=== PATIENT | female | born 1935 | race Caucasian/White ===

== ENCOUNTER 2017-10-02 17:02 | Inpatient (IN) | payer OTHER, BC ==
--- NOTE | 2017-10-02 17:09 | PDOC ---
Rapid Medical Evaluation Time Seen by Provider: 10/02/17 17:04 Medical Evaluation: Allergies Allergy/AdvReac Type Severity Reaction Status Date / Time No Known Allergies Allergy Verified 10/13/15 20:23 10/02/17 17:04 Pt. presents for abdominal pain since this morning. States she vomited. Unable to eat d/t pain. Denies fevers, chills, diarrhea, and constipation. Hx of small bowel obstruction in the past. PSHx appendectomy and repair for the SBO Exam: Pt appears uncomfortable, walking. Abdomen diffusely tender. Mildly distended with guarding Orders: Labs, IV insert, Fluids, CTAP Pt to proceed to ED for further evaluation
[2017-10-02] MEDS ORDERED: SODIUM CHLORIDE 1,000 ML IV STA (17:12)
[2017-10-02] MEDS ORDERED: ACETAMINOPHEN 1000 MG/100 ML VIAL (NON FORMULARY) IVPB ONE (17:55)
[2017-10-02] MEDS ORDERED: ONDANSETRON *ODT* 4 MG TABLET SL ONE (17:55)
[2017-10-02 17:56] LABS: BASO % 0.2 % (0-2.0); HEMATOCRIT 46.1 % (32.4-45.2); HEMOGLOBIN 14.8 GM/dL (10.7-15.3); LYMPH % 6.4 % (8-40); MCH 28.6 pg (25.7-33.7); MCHC 32.1 g/dl (32.0-36.0); MEAN CELL VOLUME 88.9 fl (80-96); MEAN PLT VOLUME 10.6 fl (7.5-11.1); MONO % 1.9 % (3.8-10.2); NEUT % 91.5 % (42.8-82.8); PLATELET COUNT 291 K/MM3 (134-434); RBC 5.19 M/mm3 (3.60-5.2); RDW 15.1 % (11.6-15.6); WHITE BLOOD COUNT 23.2 K/mm3 (4.0-10.0)
[2017-10-02] MEDS ORDERED: ONDANSETRON 4 MG/2 ML VIAL IVPUSH ONE (18:02)
[2017-10-02] MEDS ORDERED: ACETAMINOPHEN INJECTION 100 ML IVPB ONE (18:09)
[2017-10-02 18:10] LABS: INR 1.08 (0.82-1.09); PROTHROMBIN TIME (PATIENT) 12.2 SEC (9.7-13.0)
[2017-10-02] MEDS ORDERED: ONDANSETRON 4 MG/2 ML VIAL ONE ×2 (18:10→22:37)
[2017-10-02 18:22] LABS: ALBUMIN 3.7 g/dl (3.4-5.0); ANION GAP 10 (8-16); BILIRUBIN,TOTAL 0.4 mg/dL (0.2-1.0); BLOOD UREA NITROGEN 18 mg/dL (7-18); CALCIUM 9.5 mg/dL (8.5-10.1); CHLORIDE 108 mmol/L (98-107); CO2 24 mmol/L (21-32); CREATININE 0.8 mg/dL (0.55-1.02); GLUCOSE,RANDOM 184 mg/dL (74-106); POTASSIUM 4.2 mmol/L (3.5-5.1); SGOT/AST 23 U/L (15-37); SGPT/ALT 26 U/L (12-78); SODIUM 142 mmol/L (136-145); TOT PROT 7.2 g/dl (6.4-8.2)
[2017-10-02 18:23] LABS: ALK PHOS 76 U/L (45-117)
--- NOTE | 2017-10-02 19:06 | PDOC ---
History of Present Illness - General History Source: Patient, Old Records Exam Limitations: No Limitations - History of Present Illness Initial Comments: 10/02/17 19:18 The patient is an 81 year old female, accompanied by , with a past medical history of small bowel obstruction and hyperlipidemia who presents to the emergency department with abdominal pain for 12 hours and vomiting for approximately 6 hours. The patient describes her pain as diffuse periumbilical and suprapubic pain without alleviating or exacerbating factors. She reports associated decreased appetite, dizziness, shakes, and chills. <Peter Norris - Last Filed: 10/02/17 19:18> <Cass Garces - Last Filed: 10/02/17 21:13> - General Chief Complaint: Pain, Acute Stated Complaint: STOMACH PAIN Time Seen by Provider: 10/02/17 17:04 Past History <Peter Norris - Last Filed: 10/02/17 19:18> - Past Medical History COPD: No DVT: No Hypercholesterolemia: Yes - Surgical History Abdominal Surgery: Yes (SBO) Appendectomy: Yes - Immunization History Immunization Up to Date: Yes - Suicide/Smoking/Psychosocial Hx Smoking History: Never smoked Have you smoked in the past 12 months: No Number of Cigarettes Smoked Daily: 20 If you are a former smoker, when did you quit?: 1963 Information on smoking cessation initiated: No Hx Alcohol Use: No Drug/Substance Use Hx: No Substance Use Type: None <Cass Garces - Last Filed: 10/02/17 21:13> - Past Medical History Allergies/Adverse Reactions: Allergies Allergy/AdvReac Type Severity Reaction Status Date / Time No Known Allergies Allergy Verified 10/02/17 17:05 Home Medications: Ambulatory Orders Atorvastatin Ca [Lipitor] 20 mg PO HS 10/13/15 Review of Systems - Review of Systems Able to Perform ROS?: Yes Comments:: 10/02/17 19:18 CONSTITUTIONAL: (+) Chills, Shakes decreased appetite Absent: fever, no fatigue EYES: Absent: visual changes ENT: Absent: ear pain, no sore throat CARDIOVASCULAR: Absent: chest pain, no palpitations RESPIRATORY: Absent: cough, no SOB GI: (+) Abdominal pain, vomiting Absent: no nausea, no constipation, no diarrhea GENITOURINARY: Absent: dysuria, no frequency, no hematuria MUSCULOSKELETAL: Absent: back pain, no arthralgia, no myalgia SKIN: Absent: rash NEURO: (+) Dizziness Absent: headache <[email or web address] farleyke - Last Filed: 10/02/17 19:18> *Physical Exam - Vital Signs Last Vital Signs Temp Pulse Resp BP Pulse Ox 98.0 F 94 H 16 147/83 96 10/02/17 17:05 10/02/17 17:05 10/02/17 17:05 10/02/17 17:05 10/02/17 17:05 - Physical Exam Comments: 10/02/17 19:18 GENERAL: Well-appearing, well-nourished. No apparent distress. HEENT: Normocephalic, atraumatic. PERRL, EOM intact. CARDIOVASCULAR: Normal S1, S2. Regular rate and rhythm. PULMONARY: Clear to auscultation bilaterally. ABDOMEN: (+) Soft, non-distended, tenderness beneath umbilicus and suprapubic area midline and laterally. No guarding or rebound. EXTREMITIES: Normal ROM in all four extremities. No gross deformities. SKIN: Warm, dry. No rash NEUROLOGICAL: (+) Hesitant historian. All cranial nerves intact <LuceromartinePeter - Last Filed: 10/02/17 19:18> - Vital Signs Last Vital Signs Temp Pulse Resp BP Pulse Ox 98.0 F 94 H 16 147/83 96 10/02/17 17:05 10/02/17 17:05 10/02/17 17:05 10/02/17 17:05 10/02/17 17:05 <Cass Garces - Last Filed: 10/02/17 21:13> ED Treatment Course - LABORATORY CBC & Chemistry Diagram: 10/02/17 17:42 10/02/17 17:42 - ADDITIONAL ORDERS Additional order review: Laboratory Results 10/02/17 10/02/17 17:42 17:42 PT with INR 12.20 INR 1.08 Sodium 142 Potassium 4.2 Chloride 108 H Carbon Dioxide 24 Anion Gap 10 BUN 18 Creatinine 0.8 Creat Clearance w eGFR > 60 Random Glucose 184 H Calcium 9.5 Total Bilirubin 0.4 AST 23 ALT 26 Alkaline Phosphatase 76 Total Protein 7.2 Albumin 3.7 10/02/17 17:42 RBC 5.19 MCV 88.9 MCHC 32.1 RDW 15.1 MPV 10.6 Neutrophils % 91.5 H D Lymphocytes % 6.4 L D Monocytes % 1.9 L D Eosinophils % 0.0 D Basophils % 0.2 - Medications Given in the ED: ED Medications Discontinued Medications Generic Name Dose Route Start Last Admin Trade Name Freq PRN Reason Stop Dose Admin Acetaminophen 1,000 mg 10/02/17 17:55 10/02/17 18:15 Ofirmev Injection - IVPB 10/02/17 17:56 1,000 mg ONCE ONE Administration Sodium Chloride 1,000 mls @ 1,000 mls/hr 10/02/17 17:12 10/02/17 17:48 Normal Saline - IV 10/02/17 18:11 1,000 mls/hr ASDIR STA Administration Ondansetron HCl 4 mg 10/02/17 17:55 10/02/17 18:28 Zofran Odt - SL 10/02/17 17:56 Not Given ONCE ONE Ondansetron HCl 4 mg 10/02/17 18:02 10/02/17 18:15 Zofran Injection IVPUSH 10/02/17 18:03 4 mg ONCE ONE Administration <Peter Norris - Last Filed: 10/02/17 19:18> - LABORATORY CBC & Chemistry Diagram: 10/02/17 17:42 10/02/17 17:42 - ADDITIONAL ORDERS Additional order review: Laboratory Results 10/02/17 17:42 Sodium 142 Potassium 4.2 Chloride 108 H Carbon Dioxide 24 Anion Gap 10 BUN 18 Creatinine 0.8 Creat Clearance w eGFR > 60 Random Glucose 184 H Calcium 9.5 Total Bilirubin 0.4 AST 23 ALT 26 Alkaline Phosphatase 76 Total Protein 7.2 Albumin 3.7 10/02/17 17:42 RBC 5.19 MCV 88.9 MCHC 32.1 RDW 15.1 MPV 10.6 Neutrophils % 91.5 H D Lymphocytes % 6.4 L D Monocytes % 1.9 L D Eosinophils % 0.0 D Basophils % 0.2 - Medications Given in the ED: ED Medications Discontinued Medications Generic Name Dose Route Start Last Admin Trade Name Freq PRN Reason Stop Dose Admin Acetaminophen 1,000 mg 10/02/17 17:55 10/02/17 18:15 Ofirmev Injection - IVPB 10/02/17 17:56 1,000 mg ONCE ONE Administration Sodium Chloride 1,000 mls @ 1,000 mls/hr 10/02/17 17:12 10/02/17 17:48 Normal Saline - IV 10/02/17 18:11 1,000 mls/hr ASDIR STA Administration Ondansetron HCl 4 mg 10/02/17 17:55 10/02/17 18:28 Zofran Odt - SL 10/02/17 17:56 Not Given ONCE ONE Ondansetron HCl 4 mg 10/02/17 18:02 10/02/17 18:15 Zofran Injection IVPUSH 10/02/17 18:03 4 mg ONCE ONE Administration <Cass Garces - Last Filed: 10/02/17 21:13> *DC/Admit/Observation/Transfer - Attestations Scribe Attestion: 10/02/17 19:19 Documentation prepared by Peter Norris, acting as medical case worker for Cass Garces MD. <Peter Norris - Last Filed: 10/02/17 19:18> - Discharge Dispostion Decision to Admit order: Yes <Cass Garces - Last Filed: 10/02/17 21:13> Diagnosis at time of Disposition: SBO (small bowel obstruction), Hyperglycemia Ascites Qualifiers: Ascites type: other type Qualified Code(s): R18.8 - Other ascites - Referrals Referrals: Benigno Yip MD [Primary Care Provider] - - Patient Instructions - Post Discharge Activity
[2017-10-02 20:36] LABS: PLATELET ESTIMATE ADEQUATE
[2017-10-02] MEDS ORDERED: PIPERACILLIN/TAZOB 3.375 GM 3.375 GM in DEXTROSE 5%-WATER - 50 ML IVPB ONE (21:05)
--- NOTE | 2017-10-02 21:40 | HP ---
Admitting History and Physical - Primary Care Physician PCP: Benigno Yip - Admission Chief Complaint: Abdominal Pain,Vomiting History of Present Illness: 81 y/o woman PMHx Mild Dementia, SBO, Ascites (2015). Who presents to the ED with her spouse abdominal pain x this am, vomiting x 1 episode here in the ED. Patient and her spouse describe the pain as constant "pain". She states her last BM was today- hard. Patient denies fever, chills, cough, CP, diarrhea, dysuria. History Source: Patient, Family Member Limitations to Obtaining History: Dementia (early) - Past Medical History LIFE SKILLS COORDINATOR: Yes: Dementia Cardiovascular: Yes: Hyperlipdemia Gastrointestinal: Yes: Other (SBO) Hepatobiliary: Yes: Other (Ascites) Endocrine: Yes: Osteopenia - Past Surgical History Past Surgical History: Yes: Appendectomy (Age 3), Tubal Ligation - Smoking History Smoking history: Former smoker Have you smoked in the past 12 months: No Aproximately how many cigarettes per day: 20 If you are a former smoker, when did you quit?: 1963 - Alcohol/Substance Use Hx Alcohol Use: No History of Substance Use: reports: None - Social History Usual Living Arrangement: Yes: With Spouse ADL: Independent History of Recent Travel: No Home Medications - Allergies Allergies/Adverse Reactions: Allergies Allergy/AdvReac Type Severity Reaction Status Date / Time No Known Allergies Allergy Verified 10/02/17 17:05 - Home Medications Home Medications: Ambulatory Orders Atorvastatin Ca [Lipitor] 20 mg PO HS 10/13/15 Family Disease History - Family Disease History Family Disease History: CA: Father (colon), Other: Mother (Dementia) Review of Systems - Review of Systems Constitutional: reports: Loss of Appetite Eyes: reports: No Symptoms HENT: reports: No Symptoms Neck: reports: No Symptoms Cardiovascular: reports: No Symptoms Respiratory: reports: No Symptoms Gastrointestinal: reports: Abdominal Pain, Bloating, Vomiting Genitourinary: reports: No Symptoms Breasts: reports: No Symptoms Reported Musculoskeletal: reports: No Symptoms Integumentary: reports: No Symptoms Neurological: reports: No Symptoms Endocrine: reports: No Symptoms Hematology/Lymphatic: reports: No Symptoms Psychiatric: reports: No Symptoms Physical Examination Vital Signs: Vital Signs Temperature 98.0 F 10/02/17 17:05 Pulse Rate 94 H 10/02/17 17:05 Respiratory Rate 16 10/02/17 17:05 Blood Pressure 147/83 10/02/17 17:05 O2 Sat by Pulse Oximetry (%) 96 10/02/17 17:05 Constitutional: Yes: Mild Distress Eyes: Yes: WNL, Conjunctiva Clear, EOM Intact, PERRL HENT: Yes: WNL, Atraumatic, Normocephalic Neck: Yes: WNL, Supple, Trachea Midline Cardiovascular: Yes: Regular Rate and Rhythm, Murmur, S1, S2 Respiratory: Yes: WNL, Regular, CTA Bilaterally Gastrointestinal: Yes: Ascites, Distention, Hypoactive Bowel Sounds, Tenderness Renal/: Yes: WNL Breast(s): Yes: WNL Musculoskeletal: Yes: WNL Extremities: Yes: WNL Edema: No Peripheral Pulses WNL: Yes Neurological: Yes: WNL, Alert, Oriented, Cran Nerves II-XII Intact ...Motor Strength: WNL Psychiatric: Yes: WNL, Alert, Oriented Labs: CBC, BMP 10/02/17 17:42 10/02/17 17:42 Laboratory Results - last 24 hr 10/02/17 10/02/17 10/02/17 17:42 17:42 17:42 WBC 23.2 H RBC 5.19 Hgb 14.8 Hct 46.1 H D MCV 88.9 MCH 28.6 MCHC 32.1 RDW 15.1 Plt Count 291 D MPV 10.6 Absolute Neuts (auto) 21.2 Total Counted 100 Neutrophils % 91.5 H D Neutrophils % (Manual) 87.0 H Lymphocytes % 6.4 L D Lymphocytes % (Manual) 11.0 Monocytes % 1.9 L D Eosinophils % 0.0 D Basophils % 0.2 Nucleated RBC % 0 Platelet Estimate Adequate PT with INR 12.20 INR 1.08 Sodium 142 Potassium 4.2 Chloride 108 H Carbon Dioxide 24 Anion Gap 10 BUN 18 Creatinine 0.8 Creat Clearance w eGFR > 60 Random Glucose 184 H Lactic Acid Calcium 9.5 Total Bilirubin 0.4 AST 23 ALT 26 Alkaline Phosphatase 76 Total Protein 7.2 Albumin 3.7 Urine Color Urine Appearance Urine pH Ur Specific [place] Urine Protein Urine Glucose (UA) Urine Ketones Urine Blood Urine Nitrite Urine Bilirubin Urine Urobilinogen Ur Leukocyte Esterase Blood Type Antibody Screen 10/02/17 10/02/17 10/02/17 17:42 21:06 22:00 WBC RBC Hgb Hct MCV MCH MCHC RDW Plt Count MPV Absolute Neuts (auto) Total Counted Neutrophils % Neutrophils % (Manual) Lymphocytes % Lymphocytes % (Manual) Monocytes % Eosinophils % Basophils % Nucleated RBC % Platelet Estimate PT with INR INR Sodium Potassium Chloride Carbon Dioxide Anion Gap BUN Creatinine Creat Clearance w eGFR Random Glucose Lactic Acid 4.3 H* Calcium Total Bilirubin AST ALT Alkaline Phosphatase Total Protein Albumin Urine Color Yellow Urine Appearance Clear Urine pH 6.0 Ur Specific [place] 1.019 Urine Protein Negative Urine Glucose (UA) Negative Urine Ketones Negative Urine Blood Negative Urine Nitrite Negative Urine Bilirubin Negative Urine Urobilinogen Negative Ur Leukocyte Esterase Negative Blood Type O POSITIVE Antibody Screen Negative Current Medications Generic Name Dose Route Start Last Admin Trade Name Freq PRN Reason Stop Dose Admin Heparin Sodium (Porcine) 5,000 unit 10/02/17 22:00 10/02/17 22:47 Heparin - SQ 5,000 unit BID MARIA Administration Dextrose/Sodium Chloride 1,000 mls @ 42 mls/hr 10/02/17 22:00 10/02/17 22:47 D5-1/2ns - IV 42 mls/hr ASDIR MARIA Administration Morphine Sulfate 4 mg 10/03/17 01:44 Morphine Injection - IVPUSH Q6H PRN PAIN LEVEL 7 - 10 Ondansetron HCl 4 mg 10/02/17 21:44 Zofran Injection IVPUSH Q6H PRN NAUSEA Imaging - Results Cat Scan: Report Reviewed, Image Reviewed EKG: Image Reviewed Problem List - Problems (1) SBO (small bowel obstruction) Code(s): K56.69 - OTHER INTESTINAL OBSTRUCTION * DO NOT USE * (2) SIRS (systemic inflammatory response syndrome) Code(s): R65.10 - SIRS OF NON-INFECTIOUS ORIGIN W/O ACUTE ORGAN DYSFUNCTION (3) Sepsis Code(s): A41.9 - SEPSIS, UNSPECIFIED ORGANISM (4) Lactic acidemia Code(s): E87.2 - ACIDOSIS (5) Ascites Code(s): R18.8 - OTHER ASCITES Qualifiers: Ascites type: other type Qualified Code(s): R18.8 - Other ascites (6) Hyperglycemia Code(s): R73.9 - HYPERGLYCEMIA, UNSPECIFIED (7) Hyperlipidemia Code(s): E78.5 - HYPERLIPIDEMIA, UNSPECIFIED Assessment/Plan 81 y/o woman Admitted for SIRS, Sepsis secondary to SBO. Plan: Will Admit to M/S CTAP- SBO, Ascites Blood Cultures-pending Urine Cultures- pending LA- 4.3, fluid bolus given Repeat LA SIRS Criteria Met- WBC 23.2, LA 4.3 Sepsis Criteria met Started on Zosyn, will continue Appreciate ID consult Appreciate Surgical consult NGT- patient adamantly refused it, risks and dangers discussed for not having it , benefits explained as well. Continue IVF NPO Monitor vitals CBC, BMP in am Morphine Sulfate prn Zofran prn FEN- D51/2NS@42ml/hr, Replete lytes prn, NPO DVT ppx- SCDs, Heparin SQ Code Status: Full Code Dispo: Requires Inpatient Care Visit type - Emergency Visit Emergency Visit: Yes ED Registration Date: 10/02/17 Care time: The patient presented to the Emergency Department on the above date and was hospitalized for further evaluation of their emergent condition. - New Patient This patient is new to me today: Yes Date on this admission: 10/02/17 - Critical Care Critical Care patient: No Hospitalist Screening - Colonoscopy Questionnaire Colonoscopy Questionnaire: Colonoscopy Questionnaire - Patient: 50 - 75 years old and never had a screening colonoscopy: No History of colon or rectal polyps, or CA: No History of IBD, Crohn's disease or UC: No History of abdominal radiation therapy as a child: No - Relative: 1 with colon or rectal CA, or polyps at age 60 or younger: Yes Colon or rectal CA diagnosed at age 45 or younger: No Multiple relatives with colon or rectal CA: No - Outcome: Screening Result: Positive Screen
[2017-10-02] MEDS ORDERED: PIPERACILLIN/TAZOB 3.375 GM 3.375 GM/50 ML BAG IVPB ONE (21:41)
[2017-10-02] MEDS ORDERED: ONDANSETRON 4 MG/2 ML VIAL IVPUSH PRN (21:44)
[2017-10-02] MEDS ORDERED: morphine CARPU-JECT 2 MG/1 ML DISP.SYRIN IVPUSH ONE (21:58)
[2017-10-02] MEDS ORDERED: HEPARIN NA (PORCINE) 5,000 UNITS/ML 1ML VIAL SQ SCH (22:00)
[2017-10-02] MEDS ORDERED: DEXTROSE 5%-0.45% SALINE 1,000 ML IV SCH (22:00)
[2017-10-02 22:23] LABS: URINE APPEARANCE CLEAR; URINE BILIRUBIN NEGATIVE (<2.0 mg/dL); URINE COLOR YELLOW; URINE GLUCOSE (UA) NEGATIVE (NEGATIVE); URINE KETONE NEGATIVE (NEGATIVE); URINE LEUK ESTERASE NEGATIVE (NEGATIVE); URINE NITRITE NEGATIVE (NEGATIVE); URINE PROTEIN NEGATIVE (NEGATIVE); URINE UROBILINOGEN NEGATIVE mg/dL (0.2-1.0)
[2017-10-02] MEDS ORDERED: HEPARIN NA (PORCINE) 5,000 UNITS/ML 1ML VIAL ONE (22:37)
[2017-10-02] MEDS ORDERED: MORPHINE SULFATE 2 MG/ML VIAL ONE (22:37)
[2017-10-03] MEDS ORDERED: morphine CARPU-JECT 2 MG/1 ML DISP.SYRIN IVPUSH STA (00:06)
[2017-10-03] MEDS ORDERED: MORPHINE SULFATE 2 MG/ML VIAL ONE (00:18)
[2017-10-03] MEDS ORDERED: morphine SULFATE 4 MG/ML VIAL IVPUSH PRN (01:44)
[2017-10-03 03:57] VITALS: BMI 24.9
[2017-10-03 07:15] LABS: BASO % 0.1 % (0-2.0); HEMATOCRIT 41.9 % (32.4-45.2); HEMOGLOBIN 13.6 GM/dL (10.7-15.3); LYMPH % 6.2 % (8-40); MCH 29.1 pg (25.7-33.7); MCHC 32.4 g/dl (32.0-36.0); MEAN CELL VOLUME 89.6 fl (80-96); MEAN PLT VOLUME 10.5 fl (7.5-11.1); MONO % 5.2 % (3.8-10.2); NEUT % 88.5 % (42.8-82.8); PLATELET COUNT 243 K/MM3 (134-434); RBC 4.68 M/mm3 (3.60-5.2); RDW 15.1 % (11.6-15.6)
[2017-10-03 07:29] LABS: CALCIUM 8.9 mg/dL (8.5-10.1); CHLORIDE 105 mmol/L (98-107); SODIUM 139 mmol/L (136-145)
[2017-10-03 07:35] LABS: ALBUMIN 2.8 g/dl (3.4-5.0); ALK PHOS 52 U/L (45-117); AMYLASE 29 U/L (25-115); ANION GAP 12 (8-16); BILIRUBIN,TOTAL 0.4 mg/dL (0.2-1.0); BLOOD UREA NITROGEN 24 mg/dL (7-18); CO2 22 mmol/L (21-32); CREATININE 1.1 mg/dL (0.55-1.02); GLUCOSE,RANDOM 182 mg/dL (74-106); LIPASE 46 U/L (73-393); SGOT/AST 17 U/L (15-37); SGPT/ALT 22 U/L (12-78)
[2017-10-03 07:44] LABS: WHITE BLOOD COUNT 30.2 K/mm3 (4.0-10.0)
--- NOTE | 2017-10-03 12:25 | PN ---
Progress Note (short form) - Note Progress Note: surgery pt seen and examined. full consult dictated. 81f well known to me, previous jeannine and exlap for sbo, presents with abd pain, n/v, rising leukocytosis, and ct showing high grade sbo with ascites. on exam abd is soft, with mild generalized tenderness ngt unable to be placed by ER and medical team Plan- high grade sbo with peritoneal finding, leukocytosis, and ascites. I am concerned for bowel compromise. recommend exploratory surgery. pt, , son and daughter and agree.
[2017-10-03] MEDS ORDERED: PROMETHAZINE HCL 25 MG/1 ML VIAL IVPUSH PRN ×2 (12:28→15:07)
[2017-10-03] MEDS ORDERED: ONDANSETRON 4 MG/2 ML VIAL IVPUSH PRN ×3 (12:28→15:07)
[2017-10-03] MEDS ORDERED: LACTATED RINGERS SOLUTION 1,000 ML IV SCH (12:30)
[2017-10-03] MEDS ORDERED: HYDROmorphone HCL CARPU-JECT 1 MG/1 ML DISP.SYRIN IVPB PRN ×2 (12:32→15:07)
[2017-10-03] MEDS ORDERED: oxyCODONE HCL 5 MG TABLET PO PRN (12:37)
[2017-10-03] MEDS ORDERED: MIDAZOLAM HCL 2 MG/2 ML SINGLE DOSE VIAL ONE (12:40)
[2017-10-03] MEDS ORDERED: ROCURONIUM BROMIDE 50 MG/5 ML VIAL ONE (12:40)
[2017-10-03] MEDS ORDERED: ETOMIDATE 20 MG/10 ML AMPUL IVPUSH ONE (12:41)
[2017-10-03] MEDS ORDERED: ERTAPENEM SODIUM 1 GM VIAL ONE (12:42)
[2017-10-03] MEDS ORDERED: ERTAPENEM SODIUM 1 GM VIAL IVPB ONE (12:59)
[2017-10-03] MEDS ORDERED: ONDANSETRON 4 MG/2 ML VIAL ONE (13:00)
[2017-10-03] MEDS ORDERED: DEXAMETHASONE SOD PHOSPHATE 4 MG/1 ML VIAL ONE (13:00)
--- NOTE | 2017-10-03 13:02 | EKG ---
Test Reason : Blood Pressure : / mmHG Vent. Rate : 086 BPM Atrial Rate : 086 BPM P-R Int : 124 ms QRS Dur : 082 ms QT Int : 360 ms P-R-T Axes : 043 034 047 degrees QTc Int : 430 ms NORMAL SINUS RHYTHM POSSIBLE LEFT ATRIAL ENLARGEMENT NONSPECIFIC ST ABNORMALITY ABNORMAL ECG WHEN COMPARED WITH ECG OF 13-OCT-2015 21:05, CRITERIA FOR SEPTAL INFARCT ARE NO LONGER PRESENT NONSPECIFIC T WAVE ABNORMALITY HAS REPLACED INVERTED T WAVES IN ANTERIOR LEADS Confirmed by HEMANT DIANA MD ([id number]) on 10/03/2017 1:02:24 PM Referred By: Confirmed By:HEMANT DIANA MD
--- NOTE | 2017-10-03 13:03 | PN ---
Progress Note, Physician Chief Complaint: Ms Springer says the pain is a little better today but still present. No cp or sob. - Current Medication List Current Medications: Active Medications Enoxaparin Sodium (Lovenox -) 40 mg SQ DAILY [facility] Fentanyl (Sublimaze Injection -) 50 mcg IVPUSH [id number] PRN PRN Reason: PAIN-PACU ORDER X 4 DOSES ONLY Hydromorphone HCl (Dilaudid Injection -) 1 mg IVPB Q4H PRN PRN Reason: PAIN LEVEL 4 - 6 Dextrose/Sodium Chloride (D5-1/2ns -) 1,000 mls @ 42 mls/hr IV ASDIR [facility] Last Admin: 10/02/17 22:47 Dose: 42 mls/hr Lactated Ringer's (Lactated Ringers Solution) 1,000 mls @ 125 mls/hr IV ASDIR [facility] Morphine Sulfate (Morphine Sulfate) 4 mg IVPUSH Q6H PRN PRN Reason: PAIN LEVEL 7 - 10 Ondansetron HCl (Zofran Injection) 4 mg IVPUSH Q6H PRN PRN Reason: NAUSEA Ondansetron HCl (Zofran Injection) 4 mg IVPUSH Q6H PRN PRN Reason: NAUSEA AND/OR VOMITING Oxycodone HCl (Roxicodone -) 7.5 mg PO Q4H PRN PRN Reason: PAIN LEVEL 1-5 Pantoprazole Sodium (Protonix Iv) 40 mg IVPUSH DAILY [facility] Promethazine HCl (Phenergan Injection -) 12.5 mg IVPUSH Q6H PRN PRN Reason: NAUSEA-FOR RESCUE AFTER 15 MIN - Objective Vital Signs: Vital Signs Temperature 35.9 C L 10/03/17 08:00 Pulse Rate 81 10/03/17 08:00 Respiratory Rate 18 10/03/17 08:00 Blood Pressure 116/67 10/03/17 08:00 O2 Sat by Pulse Oximetry (%) 97 10/03/17 02:54 Constitutional: Yes: Well Nourished, No Distress, Calm Cardiovascular: Yes: Regular Rate and Rhythm. No: Gallop, Murmur, Rub Respiratory: Yes: Regular, CTA Bilaterally. No: Rales, Rhonchi, Wheezes Gastrointestinal: Yes: Distention, Hypoactive Bowel Sounds, Tenderness. No: Normal Bowel Sounds, Soft Extremities: Yes: WNL Edema: No Labs: CBC, BMP 10/03/17 06:30 10/03/17 06:30 INR, PTT INR 1.08 (0.82-1.09) 10/02/17 17:42 Problem List - Problems (1) SBO (small bowel obstruction) Assessment/Plan: -patient presents with high grade small bowel obstruction -surgery aware, planning for exploratory lap and resection if needed Code(s): K56.69 - OTHER INTESTINAL OBSTRUCTION * DO NOT USE * (2) Sepsis Assessment/Plan: -secondary to SBO -concern for strangulation and compromise -will continue IV antibiotics -hydration -surgery as above Code(s): A41.9 - SEPSIS, UNSPECIFIED ORGANISM (3) Hyperlipidemia Assessment/Plan: -hold statin currently Code(s): E78.5 - HYPERLIPIDEMIA, UNSPECIFIED (4) Hyperglycemia Assessment/Plan: -suspect reactive from sepsis and SBO -no need for insulin currently -will monitor -hydration Code(s): R73.9 - HYPERGLYCEMIA, UNSPECIFIED (5) Lactic acidemia Assessment/Plan: -secondary to sepsis -hydration -IV antibiotics and surgical exploration Code(s): E87.2 - ACIDOSIS (6) Ascites Assessment/Plan: -suspect reactive -noted on CT scan Code(s): R18.8 - OTHER ASCITES Qualifiers: Ascites type: other type Qualified Code(s): R18.8 - Other ascites
[2017-10-03] MEDS ORDERED: DESFLURANE GAS 240 ML BOTTLE IH ONE (13:29)
--- NOTE | 2017-10-03 13:54 | CONS ---
DATE OF CONSULTATION: 10/03/2017 REASON FOR CONSULTATION: Small-bowel obstruction. This is an emergency room consultation requested by the emergency room physician. The patient was subsequently admitted to the floor and is being seen and examined there. BRIEF HISTORY: This is an 81-year-old female well known to me who in the past has had a small-bowel obstruction requiring a laparotomy and lysis of adhesions. She also had a distant appendectomy. She presented to [facility] complaining of abdominal pain, nausea and vomiting for less than 1 day duration. She was noted to have a markedly elevated white blood cell count and had a CAT scan of her abdomen and pelvis which was suggestive of a high-grade small-bowel obstruction with ascites. She was admitted to the hospital, placed on antibiotic, and a nasogastric tube was unable to be placed by the medical as well as the emergency room team. She states she has constant pain. Denies any blood in her vomit. Denies constipation. Denies diarrhea. Denies recent weight loss. PAST MEDICAL HISTORY: Significant for hyperlipidemia and adhesive small-bowel disease. PAST SURGICAL HISTORY: As stated in the HPI. HOME MEDICATIONS: Include Lipitor. ALLERGIES: She has no known drug allergies. FAMILY HISTORY: Noncontributory. REVIEW OF SYSTEMS: General: Denies fatigue or malaise. Cardiac: Denies chest pain or palpitations. Respiratory: No shortness of breath or wheeze. Gastrointestinal: As stated in HPI. Genitourinary: Denies dysuria. Musculoskeletal: Denies joint pain, joint swelling. Psychiatric: Denies anxiety, depression or hearing voices. PHYSICAL EXAMINATION: General: This is a well-developed, well-nourished, 81-year-old female in no distress. Vital signs: She is afebrile. Her vital signs are stable. HEENT: Her head is normocephalic. Her sclerae are anicteric. Neck: Supple. Chest: Clear. Abdomen: Soft. It is mildly distended. She has a midline surgical scar and a right paramedian incision. She has generalized mild tenderness with mild rebound. Extremities: Have trace edema. LABORATORY: On review, white blood cell count is elevated at 30,000 which is up from 23,000. She has a shift. Her chemistries show a BUN that is rising at 24, a creatinine that is rising at 1.1, her lactic acid is elevated at 3.8, and her lipase level is low at 46. IMAGING: As stated in the HPI. ASSESSMENT: This is an 81-year-old with abdominal pain, nausea, vomiting, peritoneal findings on physical examination, CAT scan findings of high-grade, small-bowel obstruction with ascites, and rising leukocytosis, with a lactic acidosis. At this point, she has a high-grade, mechanical small-bowel obstruction likely from adhesions, and I am concerned for bowel compromise. PLAN: At this point, recommend urgent exploratory surgery with lysis of adhesions and possible bowel resection. The patient understands this. She is agreeable to surgery. I have also discussed in detail with her as well as her son and daughter. The risks and benefits of surgery have been explained in detail; these are including, but not limited to, the possibility of injury to viscera, the possibility of blood loss requiring a blood transfusion, the possibility of future obstruction, possibility of future hernia, plus a multitude of medical risks, including, but not limited to, cardiac, neurologic, pulmonary, and vascular complications, even . The patient understands these risks and is agreeable to surgery. At this point, plans are being made for urgent exploration. She has been given Levaquin, an antibiotic which does not cover E coli. Therefore, we will give her a dose of Invanz antibiotic. She had received Zosyn one dose last night which has worn off. DO GAMALIEL [id number]
[2017-10-03] MEDS ORDERED: LIDOCAINE HCL/PF 2% SDV 5ML VIAL ONE (14:06)
--- NOTE | 2017-10-03 14:09 | CON.ID ---
Consult Consult Specialty:: infectious diseases Reason for Consultation:: necrosis of the bowel - History of Present Illness History of Present Illness: 81 y/o woman PMHx Mild Dementia, SBO, Ascites (Exp Lap 2015). Who presents to the ED with her spouse abdominal pain x this am, vomiting x 1 episode . Patient and her spouse describe the pain as constant "pain". She states her last BM was today- hard. Patient denies fever, chills, cough, CP, diarrhea, dysuria. 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 Cardio/Vascular: Yes: Hyperlipdemia Gastrointestinal: Yes: Other (SBO) Hepatobiliary: Yes: Other (Ascites) Endocrine: Yes: Osteopenia - Past Surgical History Past Surgical History: Yes: Appendectomy (Age 3), Tubal Ligation - Alcohol/Substance Use Hx Alcohol Use: Yes (daily wine) History of Substance Use: reports: None - Smoking History Smoking history: Former smoker Have you smoked in the past 12 months: No Aproximately how many cigarettes per day: 20 If you are a former smoker, when did you quit?: 1963 - Social History ADL: Independent History of Recent Travel: No Home Medications - Allergies Allergies/Adverse Reactions: Allergies Allergy/AdvReac Type Severity Reaction Status Date / Time No Known Allergies Allergy Verified 10/02/17 17:05 - Home Medications Home Medications: Ambulatory Orders Atorvastatin Ca [Lipitor] 20 mg PO HS 10/13/15 Family Disease History - Family Disease History Family Disease History: CA: Father (colon), Other: Mother (Dementia) Review of Systems Unable to obtain ROS, reason: unable toobtain Physical Exam Vital Signs: Vital Signs Temperature 96.7 F L 10/03/17 08:00 Pulse Rate 81 10/03/17 08:00 Respiratory Rate 18 10/03/17 08:00 Blood Pressure 116/67 10/03/17 08:00 O2 Sat by Pulse Oximetry (%) 97 10/03/17 02:54 Constitutional: Yes: Other Eyes: Yes: Conjunctiva Clear Neck: Yes: Supple, Trachea Midline Cardiovascular: Yes: Regular Rate and Rhythm Respiratory: Yes: Intubated, Mechanically Ventilated Gastrointestinal: Yes: Soft, Other (absent bowel sounds dressing present) Musculoskeletal: Yes: WNL Extremities: Yes: WNL Neurological: Yes: Other Labs: CBC, BMP 10/03/17 06:30 10/03/17 06:30 Imaging - Results Chest X-ray: Report Reviewed, Image Reviewed Cat Scan: Report Reviewed, Image Reviewed Assessment/Plan Problem List - Problems (1) SBO (small bowel obstruction) Code(s): K56.69 - OTHER INTESTINAL OBSTRUCTION * DO NOT USE * (2) Sepsis Code(s): A41.9 - SEPSIS, UNSPECIFIED ORGANISM (3) Hyperlipidemia Code(s): E78.5 - HYPERLIPIDEMIA, UNSPECIFIED (4) Hyperglycemia Code(s): R73.9 - HYPERGLYCEMIA, UNSPECIFIED (5) Lactic acidemia Code(s): E87.2 - ACIDOSIS (6) Ascites Code(s): R18.8 - OTHER ASCITES Qualifiers: Ascites type: other type Qualified Code(s): R18.8 - Other ascites Assessment/Plan will stop levaquin and flagyl will give a dose of diflucan will start patient on meropenam continue as per surgery and icu hydration if patient does well tomorrow then stop diflucan cc time 45 min
[2017-10-03] MEDS: PROPOFOL 1,000,000 MCG/100 ML VIAL IVPUSH SCH (14:50)
[2017-10-03] MEDS ORDERED: PROPOFOL 1000 MG/100 ML VIAL IVPB ONE (14:50)
--- NOTE | 2017-10-03 14:54 | OP ---
DATE OF OPERATION: 10/03/2017 PREOPERATIVE DIAGNOSIS: Small bowel obstruction with acute abdomen. POSTOPERATIVE DIAGNOSIS: Small bowel obstruction with acute abdomen. PROCEDURE: Exploratory laparotomy, drainage of bloody ascites, small bowel resection, lavage. SURGEON: Fernando Crystal DO CARD DOFFER: Abiodun Ayala MD ANESTHESIOLOGIST: Daniel Pringle MD (general) INTRAOPERATIVE FINDINGS: A 4 foot segment of ischemic/necrotic bowel. BLOOD LOSS: Minimal. COMPLICATIONS: None. SPECIMEN: Four feet of small bowel with necrosis. DISPOSITION: Recovery room in stable condition. ANESTHESIA: General. BRIEF HISTORY: This is an 81-year-old female presented to [facility] with small bowel obstruction, peritoneal findings, leukocytosis, lactic acidosis and CAT scan evidence of a high-grade small bowel obstruction with ascites. She presents now for urgent surgery. She was given Invanz prophylactically. PROCEDURE: The patient was placed in supine position, general anesthesia was initiated. The abdomen was prepped and draped in sterile fashion. A Sotelo catheter was inserted and the patient was on Invanz. Next, a vertical incision was made from approximately 3 inches below the umbilicus to approximately 4 inches below. The scalpel was used to go through skin. Electrocautery was used to go through the subcutaneous tissue, the fascia. The midline was opened using electrocautery. The peritoneum was entered sharply under direct visualization. Upon doing this, approximately 3 L of bloody ascites was drained. Necrotic bowel was immediately noted. It was trapped within an internal hernia created by an omental adhesion. This was freed. The small bowel was completely released and run. There was a 4 foot segment that had obvious vascular compromise with thrombosis seen in the mesentery. After allowing it to warm up and observed for at least 15 minutes, the majority of it appeared to be not viable. At this point, decision was made to resect the entire segment. A small bowel resection was done with a [id number] anastomosis using a GIA80 blue load stapler and a TA60 to close the enterotomy. The mesentery was divided using the LigaSure device. The 4 foot segment of necrotic small bowel was sent to Pathology marked as specimen. The mesenteric defect was closed with a running chromic suture. Some further omental adhesions to the abdominal wall were taken down. A vigorous lavage was done and all return was clear. Next, the liver was palpated. There were no masses noted. The colon was grossly palpated, as well as the pelvis and no masses identified. At this point after the lavage was done , the midline was closed with running PDS suture. The skin was left opened and packed. Overall the patient tolerated the procedure well. There were no complications. Blood loss was minimal and she was sent to the recovery room. Per Anesthesia, she was to be left on the ventilator for possible worsening sepsis, although she was currently stable. She also would leave her nasogastric tube in place, as well as the Sotelo catheter. DO GAMALIEL BEE/[id number] MTDD
[2017-10-03] MEDS: LACTATED RINGERS SOLUTION 1,000 ML IV SCH (15:00)
[2017-10-03] MEDS ORDERED: DEXTROSE 5%-0.45% SALINE 1,000 ML IV SCH (15:07)
--- NOTE | 2017-10-03 15:47 | OP ---
Operative Note - Note: Operative Date: 10/03/17 Pre-Operative Diagnosis: small bowel obstruction, acute abdomen Operation: exploratory laparotomy, small bowel resection, drainage of bloody ascites, lavage Findings: 4 foot of ischemic bowel, hemorrhagic, within internal hernia, bloody ascites Post-Operative Diagnosis: Same as Pre-op Surgeon: Fernando Crystal Fur Repairer: Abiodun Ayala Anesthesiologist/FUND DEVELOPMENT MANAGER: Daniel Pringle Anesthesia: General Specimens Removed: 4 foot compromised bowel Estimated Blood Loss (mls): 5 Operative Report Dictated: Yes
[2017-10-03 16:04] LABS: ARTERIAL BLD GAS O2 SATURATION 91.6 % (90-98.9); ARTERIAL BLOOD GAS BASE EXCESS -2.3 meq/l (-2-2); ARTERIAL BLOOD GAS PCO2 33.5 mmHg (35-45); ARTERIAL BLOOD GAS PO2 71.5 mmHg (68-100); ARTERIAL BLOOD GAS pH 7.42 (7.35-7.45)
--- NOTE | 2017-10-03 16:09 | CON.GI ---
Consult Consult Specialty:: Gastroenterology Referred by:: Dr. Foreman Reason for Consultation:: SBO on Abdominal CT - History of Present Illness Chief Complaint: Abdominal Pain History of Present Illness: Patient currently sedated and intubated on vent. Information obtained from medical records. Patient is an 81 female with a history of previous SBO s/p exploratory laparotomy and lysis of adhesions for small bowel obstruction (10/2015) who presented to the ED yesterday with her spouse for constant diffuse abdominal pain that started in the morning. Patient started having worsening abdominal pain associated with nausea, chills, rigors, and anorexia which prompted the ED visit. Patient in the ED had one episode of nonbloody nonbilious vomiting. On CT abdomen, patient was found to have peritoneal signs with leukocytosis, ascites, which was concerning for bowel compromise ans acute abdomen, as per surgeon. Patient was taken to OR for exploratory laparotomy. 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 Cardio/Vascular: Yes: Hyperlipdemia Gastrointestinal: Yes: Other (SBO) Hepatobiliary: Yes: Other (Ascites) Endocrine: Yes: Osteopenia - Past Surgical History Past Surgical History: Yes: Appendectomy (Age 3), Tubal Ligation Additional Surgical History: exploratory laparotomy - Alcohol/Substance Use Hx Alcohol Use: Yes (daily wine) History of Substance Use: reports: None - Smoking History Smoking history: Former smoker Have you smoked in the past 12 months: No Aproximately how many cigarettes per day: 20 If you are a former smoker, when did you quit?: 1964 - Social History ADL: Independent History of Recent Travel: No <Char Alex - Last Filed: 10/03/17 17:04> Home Medications <Char Alex - Last Filed: 10/03/17 17:04> <Jun Grissom - Last Filed: 10/04/17 11:26> - Allergies Allergies/Adverse Reactions: Allergies Allergy/AdvReac Type Severity Reaction Status Date / Time No Known Allergies Allergy Verified 10/02/17 17:05 - Home Medications Home Medications: Ambulatory Orders Atorvastatin Ca [Lipitor] 20 mg PO HS 10/13/15 Family Disease History - Family Disease History Family Disease History: CA: Father (colon), Other: Mother (Dementia) <Char Alex - Last Filed: 10/03/17 17:04> Review of Systems Unable to obtain ROS, reason: Patient intubated <Char Alex - Last Filed: 10/03/17 17:04> Physical Exam-GI Vital Signs: Vital Signs Temperature 96.7 F L 10/03/17 08:00 Pulse Rate 81 10/03/17 08:00 Respiratory Rate 18 10/03/17 09:00 Blood Pressure 116/67 10/03/17 08:00 O2 Sat by Pulse Oximetry (%) 95 10/03/17 09:00 Constitutional: Yes: Other (Intubated and sedated) Eyes: Yes: Conjunctiva Clear, PERRL. No: Sclera Icterus HENT: Yes: Other (ET tube and NG tube w/ bloody drainage) Cardiovascular: Yes: Regular Rate and Rhythm, S1, S2. No: Bradycardia, Tachycardia Respiratory: Yes: Other (Distant breath sounds anteriorly) Gastrointestinal Inspection: Yes: Other (Surgical dressing c/d/i) ...Auscultate: Yes: Hypoactive Bowel Sounds ...Palpate: Yes: Soft ...Rectal Exam: Yes: Deferred Edema: No Wound/Incision: Yes: Dressing Dry and Intact Labs: CBC, BMP 10/03/17 06:30 10/03/17 06:30 INR, PTT INR 1.08 (0.82-1.09) 10/02/17 17:42 <Char Alex - Last Filed: 10/03/17 17:04> Vital Signs: Vital Signs Temperature 100.3 F H 10/04/17 06:00 Pulse Rate 94 H 10/04/17 09:57 Respiratory Rate 20 10/04/17 09:44 Blood Pressure 110/47 10/04/17 08:00 O2 Sat by Pulse Oximetry (%) 95 10/04/17 09:57 Labs: CBC, BMP 10/04/17 05:30 10/04/17 05:30 INR, PTT INR 1.08 (0.82-1.09) 10/02/17 17:42 <Jun Grissom - Last Filed: 10/04/17 11:26> Imaging - Results Cat Scan: Report Reviewed, Image Reviewed <Char Alex - Last Filed: 10/03/17 17:04> Problem List - Problems (1) Ascites Code(s): R18.8 - OTHER ASCITES Qualifiers: Ascites type: other type Qualified Code(s): R18.8 - Other ascites (2) Lactic acidemia Code(s): E87.2 - ACIDOSIS (3) SBO (small bowel obstruction) Code(s): K56.69 - OTHER INTESTINAL OBSTRUCTION * DO NOT USE * (4) Sepsis Code(s): A41.9 - SEPSIS, UNSPECIFIED ORGANISM <Char Alex - Last Filed: 10/03/17 17:04> Assessment/Plan Assessment: Patient is an 81 year old female with a history of SBO (2016) who presented with abdominal pain and was found to have a small bowel obstruction on CT. Patient was taken to the OR for an exploratory laparotomy and was found to have 4 foot of ischemic bowel, hemorrhagic, within internal hernia, and bloody ascites a small bowel resection, drainage of bloody ascites with lavage was done. Patient developed SBO likely secondary to previous abdominal surgeries and confirmed history of abdominal adhesions PLAN: Patient is s/p exploratory laparotomy with small bowel resection Post-op care as per Surgery NPO Continue NG tube, as per surgery IV Abx, as per ID ICU care <Char Alex - Last Filed: 10/03/17 17:04> Attending Attestation - Resident Resident Name: Char Alex - HPI HPI: 10/04/17 11:25 as above - Physicial Exam PE: 10/04/17 11:25 as above - Medical Decision Making 10/04/17 11:25 The above A/P discussed with the resident. <Jun Grissom - Last Filed: 10/04/17 11:26>
[2017-10-03] MEDS ORDERED: MEROPENEM 1 GM VIAL (RESTRICTED TO ID) IVPB ONE ×2 (16:13→17:00)
[2017-10-03 16:16] LABS: ALLENS TEST POSITIVE
[2017-10-03] MEDS ORDERED: FLUCONAZOLE 400 MG/NS 200 ML IVPB ONE (16:45)
[2017-10-03] MEDS: MEROPENEM 1 GM in DEXTROSE 5%-WATER 100 ML IVPB SCH (18:13)
--- NOTE | 2017-10-03 20:40 | CONSULT ---
Consult Consult Specialty:: Pulm/CCM - History of Present Illness Chief Complaint: Post-op Colectomy History of Present Illness: 81yow with PMHx of SBO s/p exploratory laparotomy and lysis of adhesions (2015) who presented to the ED yesterday with c/o diffuse abdominal pain x 1 day also with nausea, chills, rigors, and anorexia. In the ED T 98, HR 94, BP 147/83, O2 sat 96%. Labs notable for WBC 30.2, lactate 3.8. CTAP notable for ascites and findings consistent with high grade small bowel obstruction. She had one episode of non-bloody non-bilious emesis in ED. She is now transferred to ICU s/p exploratory lap with small bowel resection. EBL 100cc, she received 2.5L fluid, UOP 100cc. In ICU rec'd intubated and sedated on propofol drip. On LR @125cc/h. No pressors. VS HR 100, BP 100/56, O2 sat 100%. Abd dressing dry and intact. NGT to LWS with minimal drainage. 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 Cardio/Vascular: Yes: Hyperlipdemia Gastrointestinal: Yes: Other (SBO) Hepatobiliary: Yes: Other (Ascites) Endocrine: Yes: Osteopenia - Past Surgical History Past Surgical History: Yes: Appendectomy (Age 3), Tubal Ligation Additional Surgical History: exploratory laparotomy - Alcohol/Substance Use Hx Alcohol Use: Yes (daily wine) History of Substance Use: reports: None - Smoking History Smoking history: Former smoker Have you smoked in the past 12 months: No Aproximately how many cigarettes per day: 20 If you are a former smoker, when did you quit?: 1964 - Social History ADL: Independent History of Recent Travel: No Home Medications - Allergies Allergies/Adverse Reactions: Allergies Allergy/AdvReac Type Severity Reaction Status Date / Time No Known Allergies Allergy Verified 10/02/17 17:05 - Home Medications Home Medications: Ambulatory Orders Atorvastatin Ca [Lipitor] 20 mg PO HS 10/13/15 Family Disease History - Family Disease History Family Disease History: CA: Father (colon), Other: Mother (Dementia) Review of Systems Unable to obtain ROS, reason: Unable- intubated Physical Exam Vital Signs: Vital Signs Temperature 99.1 F 10/03/17 17:45 Pulse Rate 98 H 10/03/17 18:35 Respiratory Rate 22 10/03/17 18:35 Blood Pressure 106/57 10/03/17 18:35 O2 Sat by Pulse Oximetry (%) 100 10/03/17 17:48 Constitutional: Yes: Well Nourished, No Distress Eyes: Yes: Conjunctiva Clear, PERRL HENT: Yes: Atraumatic, Normocephalic, Other (orally intubated) Neck: Yes: Supple, Trachea Midline Cardiovascular: Yes: WNL, S1, S2 Respiratory: Yes: CTA Bilaterally, Mechanically Ventilated Gastrointestinal: Yes: Other (surgical incision with dressing intact) Renal/: Yes: Sotelo Present Extremities: Yes: WNL Edema: No Peripheral Pulses WNL: Yes Integumentary: Yes: WNL Wound/Incision: Yes: Dressing Dry and Intact Neurological: Yes: Other (Sedated - RASS -4) Labs: CBC, BMP 10/03/17 06:30 10/03/17 06:30 CBC,CMP WBC 30.2 K/mm3 (4.0-10.0) H* 10/03/17 06:30 RBC 4.68 M/mm3 (3.60-5.2) 10/03/17 06:30 Hgb 13.6 GM/dL (10.7-15.3) 10/03/17 06:30 Hct 41.9 % (32.4-45.2) 10/03/17 06:30 MCV 89.6 fl (80-96) 10/03/17 06:30 MCH 29.1 pg (25.7-33.7) 10/03/17 06:30 MCHC 32.4 g/dl (32.0-36.0) 10/03/17 06:30 RDW 15.1 % (11.6-15.6) 10/03/17 06:30 Plt Count 243 K/MM3 (134-434) 10/03/17 06:30 MPV 10.5 fl (7.5-11.1) 10/03/17 06:30 Absolute Neuts (auto) 26.7 # 10/03/17 06:30 Total Counted 100 10/02/17 17:42 Neutrophils % 88.5 % (42.8-82.8) H 10/03/17 06:30 Neutrophils % (Manual) 87.0 % (42.8-82.8) H 10/02/17 17:42 Lymphocytes % 6.2 % (8-40) L 10/03/17 06:30 Lymphocytes % (Manual) 11.0 % (8-40) 10/02/17 17:42 Monocytes % 5.2 % (3.8-10.2) D 10/03/17 06:30 Eosinophils % 0.0 % (0-4.5) 10/03/17 06:30 Basophils % 0.1 % (0-2.0) 10/03/17 06:30 Nucleated RBC % 0 % (0-0) 10/03/17 06:30 Platelet Estimate Adequate 10/02/17 17:42 Sodium 139 mmol/L (136-145) 10/03/17 06:30 Potassium 4.0 mmol/L (3.5-5.1) 10/03/17 06:30 Chloride 105 mmol/L (98-107) 10/03/17 06:30 Carbon Dioxide 22 mmol/L (21-32) 10/03/17 06:30 Anion Gap 12 (8-16) 10/03/17 06:30 BUN 24 mg/dL (7-18) H 10/03/17 06:30 Creatinine 1.1 mg/dL (0.55-1.02) H 10/03/17 06:30 Creat Clearance w eGFR 47.55 (>60) 10/03/17 06:30 Random Glucose 182 mg/dL (74-106) H 10/03/17 06:30 Lactic Acid 3.8 mmol/L (0.0-2.0) H* 10/03/17 02:00 Calcium 8.9 mg/dL (8.5-10.1) 10/03/17 06:30 Total Bilirubin 0.4 mg/dL (0.2-1.0) 10/03/17 06:30 AST 17 U/L (15-37) 10/03/17 06:30 ALT 22 U/L (12-78) 10/03/17 06:30 Alkaline Phosphatase 52 U/L (45-117) D 10/03/17 06:30 Total Protein 6.0 g/dl (6.4-8.2) L 10/03/17 06:30 Albumin 2.8 g/dl (3.4-5.0) L 10/03/17 06:30 Total Amylase 29 U/L (25-115) 10/03/17 06:30 Lipase 46 U/L (73-393) L 10/03/17 06:30 Current Medications Enoxaparin Sodium (Lovenox -) 40 mg SQ DAILY [facility] Fentanyl (Sublimaze Injection -) 50 mcg IVPUSH [id number] PRN PRN Reason: PAIN-PACU ORDER X 4 DOSES ONLY Last Admin: 10/03/17 16:10 Dose: 50 mcg Propofol (Diprivan -) 1,000,000 mcg in 100 mls @ 1.977 mls/hr IVPUSH TITR MARIA; Protocol Last Titration: 10/03/17 17:15 Dose: 10 mcg/kg/min, 3.953 mls/hr Lactated Ringer's (Lactated Ringers Solution) 1,000 mls @ 125 mls/hr IV ASDIR MARIA Last Admin: 10/03/17 15:00 Dose: 125 mls/hr Meropenem 1 gm/ Dextrose 100 mls @ 200 mls/hr IVPB Q8H-IV MARIA Last Admin: 10/03/17 18:13 Dose: 200 mls/hr Morphine Sulfate (Morphine Sulfate) 4 mg IVPUSH Q4H PRN PRN Reason: PAIN LEVEL 4-6 Ondansetron HCl (Zofran Injection) 4 mg IVPUSH Q6H PRN PRN Reason: NAUSEA Oxycodone HCl (Roxicodone -) 7.5 mg PO Q4H PRN PRN Reason: PAIN LEVEL 1-5 Pantoprazole Sodium (Protonix Iv) 40 mg IVPUSH DAILY [facility] Promethazine HCl (Phenergan Injection -) 12.5 mg IVPUSH Q6H PRN PRN Reason: NAUSEA-FOR RESCUE AFTER 15 MIN Imaging - Results Chest X-ray: Report Reviewed Problem List - Problems (1) S/P colectomy Code(s): Z90.49 - ACQUIRED ABSENCE OF OTHER SPECIFIED PARTS OF DIGESTIVE TRACT (2) Ascites Code(s): R18.8 - OTHER ASCITES Qualifiers: Ascites type: other type Qualified Code(s): R18.8 - Other ascites (3) Lactic acidemia Code(s): E87.2 - ACIDOSIS (4) SBO (small bowel obstruction) Code(s): K56.69 - OTHER INTESTINAL OBSTRUCTION * DO NOT USE * (5) SIRS (systemic inflammatory response syndrome) Code(s): R65.10 - SIRS OF NON-INFECTIOUS ORIGIN W/O ACUTE ORGAN DYSFUNCTION Assessment/Plan 81yow with SBO now s/p exploratory lap and small bowel resection in ICU for post -op management Plan: -Mechanical vent support for O2 sat>92% -Low dose sedation for vent synchrony -Fentanyl pushes for pain management -SBT on am -Continue empiric antibiotics; tailor to cultures -Continue IVF; fluid bolus prn -Low threshold for vasopressor support for MAP>60 -Monitor for CBC for bleeding infection -NPO -NGT to LWS -Aspiration precaution -GI and DVT prophylaxis Tali Blanc, RONNELL CC time 35mins
[2017-10-04] MEDS ORDERED: PT OWN MED DRAWER 7, Y5N ONE ×3 (01:01→18:28)
[2017-10-04] MEDS: MEROPENEM 1 GM in DEXTROSE 5%-WATER 100 ML IVPB SCH ×4 (01:09→18:44)
[2017-10-04] MEDS: ACETAMINOPHEN 1000 MG/100 ML VIAL (NON FORMULARY) IVPB PRN (02:07)
[2017-10-04] MEDS: morphine SULFATE 4 MG/ML VIAL IVPUSH PRN (03:16)
[2017-10-04 06:12] LABS: HEMATOCRIT 29.9 % (32.4-45.2); MCH 29.5 pg (25.7-33.7); MCHC 33.5 g/dl (32.0-36.0); MEAN CELL VOLUME 88.2 fl (80-96); MEAN PLT VOLUME 10.1 fl (7.5-11.1); PLATELET COUNT 153 K/MM3 (134-434); WHITE BLOOD COUNT 18.2 K/mm3 (4.0-10.0)
[2017-10-04 06:37] LABS: ANION GAP 5 (8-16); BLOOD UREA NITROGEN 38 mg/dL (7-18); CALCIUM 8.5 mg/dL (8.5-10.1); CHLORIDE 105 mmol/L (98-107); CO2 27 mmol/L (21-32); CREATININE 1.4 mg/dL (0.55-1.02); GLUCOSE,RANDOM 113 mg/dL (74-106); MAGNESIUM 1.8 mg/dL (1.8-2.4); PHOSPHOROUS 3.8 mg/dL (2.5-4.9); POTASSIUM 4.7 mmol/L (3.5-5.1); SODIUM 137 mmol/L (136-145)
--- NOTE | 2017-10-04 08:23 | PN ---
Progress Note (short form) - Note Progress Note: Anesthesia Post op Pt seen and examined S:Intubated and sedated O: Vital Signs Temperature 100.3 F H 10/04/17 06:00 Pulse Rate 92 H 10/04/17 06:00 Respiratory Rate 18 10/04/17 07:04 Blood Pressure 119/57 10/04/17 06:00 O2 Sat by Pulse Oximetry (%) 100 10/03/17 22:53 CBC, BMP 10/04/17 05:30 10/04/17 05:30 A/P Current Active Problems Ascites (Acute) Hyperglycemia (Acute) Lactic acidemia (Acute) S/P colectomy (Acute) SBO (small bowel obstruction) (Acute) Sepsis (Acute) s/pexploratory laparotomy small bowel resction Doing well post op Consider extubation today when stable Continue current care Fernando Patel MD
--- NOTE | 2017-10-04 09:43 | PN ---
Progress Note (short form) - Note Progress Note: surgery pt seen and examined. awake and alert on vent. plans for extubation abd- soft, moderate distension, dressing c/d/i u/o 50 per hour over night minimal ngt output Selected Entries 10/04/17 06:00 Temperature 100.3 F H Laboratory Tests 10/04/17 10/04/17 10/04/17 05:30 05:30 05:30 WBC 18.2 H Hgb 10.0 L Plt Count 153 D BUN 38 H Creatinine 1.4 H Lactic Acid 1.4 A/P 1) Pod#1- cont npo, ngt, jeffrey, ivf.. extubate per icu 2) ischemic bowel- s/p resection, follow path. cont iv abx per id. wbc dropping. lactate normal 3) arf- adequate urine output. should resolve 4) prophylaxis- lovenox, protonix, oob when extubated, spirometer 5) post operative ileus- should last 3-5 days.
[2017-10-04] MEDS ORDERED: ENOXAPARIN NA (PORCINE) 40 MG/0.4 ML DISP.SYRIN SQ SCH (10:00)
[2017-10-04] MEDS: PANTOPRAZOLE SODIUM 40 MG VIAL IVPUSH SCH (10:16)
--- NOTE | 2017-10-04 10:45 | PN ---
Progress Note, Physician Chief Complaint: Ms Springer says the NGT is irritating her throat. Denies cp, sob, n/v. - Current Medication List Current Medications: Active Medications Acetaminophen (Ofirmev Injection -) 1,000 mg IVPB Q6H PRN PRN Reason: FEVER Last Admin: 10/04/17 02:07 Dose: 1,000 mg Enoxaparin Sodium (Lovenox -) 40 mg SQ DAILY [facility] Fentanyl (Sublimaze Injection -) 50 mcg IVPUSH [id number] PRN PRN Reason: PAIN-PACU ORDER X 4 DOSES ONLY Last Admin: 10/03/17 16:10 Dose: 50 mcg Propofol (Diprivan -) 1,000,000 mcg in 100 mls @ 1.977 mls/hr IVPUSH TITR MARIA; Protocol Last Titration: 10/04/17 06:09 Dose: 20.99 mcg/kg/min, 8.3 mls/hr Lactated Ringer's (Lactated Ringers Solution) 1,000 mls @ 125 mls/hr IV ASDIR MARIA Last Admin: 10/03/17 15:00 Dose: 125 mls/hr Meropenem 1 gm/ Dextrose 100 mls @ 200 mls/hr IVPB Q8H-IV [facility] Last Admin: 10/04/17 10:16 Dose: 200 mls/hr Morphine Sulfate (Morphine Sulfate) 4 mg IVPUSH Q4H PRN PRN Reason: PAIN LEVEL 4-6 Last Admin: 10/04/17 03:16 Dose: 4 mg Ondansetron HCl (Zofran Injection) 4 mg IVPUSH Q6H PRN PRN Reason: NAUSEA Oxycodone HCl (Roxicodone -) 7.5 mg PO Q4H PRN PRN Reason: PAIN LEVEL 1-5 Pantoprazole Sodium (Protonix Iv) 40 mg IVPUSH DAILY [facility] Last Admin: 10/04/17 10:16 Dose: 40 mg Promethazine HCl (Phenergan Injection -) 12.5 mg IVPUSH Q6H PRN PRN Reason: NAUSEA-FOR RESCUE AFTER 15 MIN - Objective Vital Signs: Vital Signs Temperature 37.9 C H 10/04/17 06:00 Pulse Rate 94 H 10/04/17 09:57 Respiratory Rate 20 10/04/17 09:44 Blood Pressure 119/57 10/04/17 06:00 O2 Sat by Pulse Oximetry (%) 95 10/04/17 09:57 Constitutional: Yes: Well Nourished, No Distress, Calm Cardiovascular: Yes: Regular Rate and Rhythm. No: Gallop, Murmur, Rub Respiratory: Yes: Regular, CTA Bilaterally. No: Rales, Rhonchi, Wheezes Gastrointestinal: Yes: Soft, Hypoactive Bowel Sounds. No: Normal Bowel Sounds, Distention, Tenderness Extremities: Yes: WNL Edema: No Labs: CBC, BMP 10/04/17 05:30 10/04/17 05:30 INR, PTT INR 1.08 (0.82-1.09) 10/02/17 17:42 Problem List - Problems (1) SBO (small bowel obstruction) Code(s): K56.69 - OTHER INTESTINAL OBSTRUCTION * DO NOT USE * (2) Sepsis Code(s): A41.9 - SEPSIS, UNSPECIFIED ORGANISM (3) Hyperlipidemia Code(s): E78.5 - HYPERLIPIDEMIA, UNSPECIFIED (4) Hyperglycemia Code(s): R73.9 - HYPERGLYCEMIA, UNSPECIFIED (5) Lactic acidemia Code(s): E87.2 - ACIDOSIS (6) Ascites Code(s): R18.8 - OTHER ASCITES Qualifiers: Ascites type: other type Qualified Code(s): R18.8 - Other ascites Assessment/Plan (1) SBO (small bowel obstruction) Assessment/Plan: -s/p ex lap with resection -surgery note reviewed -continue NPO and NGT -surgery following Code(s): K56.69 - OTHER INTESTINAL OBSTRUCTION * DO NOT USE * (2) Sepsis Assessment/Plan: -improved -continue IVF and levaquin and flagyl -lactic acidosis resolved -leukocytosis improving Code(s): A41.9 - SEPSIS, UNSPECIFIED ORGANISM (3) Hyperlipidemia Assessment/Plan: -hold statin currently Code(s): E78.5 - HYPERLIPIDEMIA, UNSPECIFIED (4) Hyperglycemia Assessment/Plan: -resolved Code(s): R73.9 - HYPERGLYCEMIA, UNSPECIFIED (5) Lactic acidemia Assessment/Plan: -resolved Code(s): E87.2 - ACIDOSIS (6) Ascites Assessment/Plan: -suspect reactive -noted on CT scan Code(s): R18.8 - OTHER ASCITES Qualifiers: Ascites type: other type Qualified Code(s): R18.8 - Other ascites
--- NOTE | 2017-10-04 11:25 | PN ---
Teaching Attending Note Name of Resident: Tanja Alex ATTENDING PHYSICIAN STATEMENT I saw and evaluated the patient. I reviewed the resident's note and discussed the case with the resident. I agree with the resident's findings and plan as documented. SUBJECTIVE: Pt seen and examined in the ICU. s/p ex-lap/resection of 4 ft SB. Tolerated CPAP /PS trials and subsequently extubated during rounds. OBJECTIVE: Vital Signs Period Temp Pulse Resp BP Sys/Alvarado Pulse Ox Last 24 Hr 98.6 F-100.3 F 78-106 10-23 85-138/41-76 29-100 Intake & Output 10/01/17 10/02/17 10/03/17 10/04/17 23:59 23:59 23:59 23:59 Intake Total 3300 1799.6 Output Total 775 500 Balance 2525 1299.6 Weight 66.224 kg 66.134 kg 67.676 kg Gen: extubated Heart: RRR Lung: decreased breath sounds at the bases Abd: soft, dressings intact Ext: no edema CBC, BMP 10/04/17 05:30 10/04/17 05:30 Active Medications Acetaminophen (Ofirmev Injection -) 1,000 mg IVPB Q6H PRN PRN Reason: FEVER Last Admin: 10/04/17 02:07 Dose: 1,000 mg Fentanyl (Sublimaze Injection -) 50 mcg IVPUSH [id number] PRN PRN Reason: PAIN-PACU ORDER X 4 DOSES ONLY Last Admin: 10/03/17 16:10 Dose: 50 mcg Heparin Sodium (Porcine) (Heparin -) 5,000 unit SQ TID MARIA Propofol (Diprivan -) 1,000,000 mcg in 100 mls @ 1.977 mls/hr IVPUSH TITR MARIA; Protocol Last Titration: 10/04/17 06:09 Dose: 20.99 mcg/kg/min, 8.3 mls/hr Lactated Ringer's (Lactated Ringers Solution) 1,000 mls @ 125 mls/hr IV ASDIR MARIA Last Admin: 10/03/17 15:00 Dose: 125 mls/hr Meropenem 1 gm/ Dextrose 100 mls @ 200 mls/hr IVPB Q8H-IV MARIA Last Admin: 10/04/17 10:16 Dose: 200 mls/hr Morphine Sulfate (Morphine Sulfate) 4 mg IVPUSH Q4H PRN PRN Reason: PAIN LEVEL 4-6 Last Admin: 10/04/17 03:16 Dose: 4 mg Ondansetron HCl (Zofran Injection) 4 mg IVPUSH Q6H PRN PRN Reason: NAUSEA Oxycodone HCl (Roxicodone -) 7.5 mg PO Q4H PRN PRN Reason: PAIN LEVEL 1-5 Pantoprazole Sodium (Protonix Iv) 40 mg IVPUSH DAILY MARIA Last Admin: 10/04/17 10:16 Dose: 40 mg Promethazine HCl (Phenergan Injection -) 12.5 mg IVPUSH Q6H PRN PRN Reason: NAUSEA-FOR RESCUE AFTER 15 MIN ASSESSMENT AND PLAN: Small Bowel Obstruction s/p ex-lap/resection of 4ft SB Sepsis Acute Kidney Injury Lactic Acidosis Hyperlipidemia - pt extubated - continue antibiotics - IVF - monitor urine output, creatinine - pain control - incentive spirometry - O2 to keep SpO2 >90% - NPO - await return of bowel function - DVT prophylaxis critical care time spent in reviewing chart, evaluating patient and formulating plan 35 min
--- NOTE | 2017-10-04 11:55 | PN ---
Physical Exam: SUBJECTIVE: Patient seen and examined. Tolerated CPAP trials and was successfully extubated. Offers no complaints. Denies abdominal pain, sob, chest pain. OBJECTIVE: Vital Signs Period Temp Pulse Resp BP Sys/Alvarado Pulse Ox Last 24 Hr 98.6 F-100.3 F 78-106 10-23 85-138/41-76 29-100 GENERAL: awake, alert in NAD EYES: PERRL, sclera anicteric, conjunctiva clear. ENT: moist mucous membranes. NECK: supple. LUNGS: decreased breath sounds, no wheezing HEART: RRR, no murmurs appreciated ABDOMEN: Surgical dressing in place. distended, hypoactive bowel sounds EXTREMITIES: 2+ pulses, warm, no edema. NEUROLOGICAL: Cranial nerves II through XII grossly intact. Laboratory Results - last 24 hr 10/03/17 10/04/17 10/04/17 15:45 05:30 05:30 WBC 18.2 H RBC 3.40 L Hgb 10.0 L Hct 29.9 L D MCV 88.2 MCH 29.5 MCHC 33.5 RDW 15.0 Plt Count 153 D MPV 10.1 Puncture Site Right radial ABG pH 7.42 ABG pCO2 at Pt Temp 33.5 L ABG pO2 at Pt Temp 71.5 ABG HCO3 21.2 L ABG O2 Sat (Measured) 91.6 ABG O2 Content 14.5 L ABG Base Excess -2.3 L Donovan Test Positive Oxygen Flow Rate 50% Vent Rate 10 Pressure Support Vent 400 Sodium 137 Potassium 4.7 Chloride 105 Carbon Dioxide 27 Anion Gap 5 L BUN 38 H Creatinine 1.4 H Creat Clearance w eGFR 36.00 Random Glucose 113 H Lactic Acid Calcium 8.5 Phosphorus 3.8 Magnesium 1.8 10/04/17 05:30 WBC RBC Hgb Hct MCV MCH MCHC RDW Plt Count MPV Puncture Site ABG pH ABG pCO2 at Pt Temp ABG pO2 at Pt Temp ABG HCO3 ABG O2 Sat (Measured) ABG O2 Content ABG Base Excess Donovan Test Oxygen Flow Rate Vent Rate Pressure Support Vent Sodium Potassium Chloride Carbon Dioxide Anion Gap BUN Creatinine Creat Clearance w eGFR Random Glucose Lactic Acid 1.4 Calcium Phosphorus Magnesium Active Medications Generic Name Dose Route Start Last Admin Trade Name Freq PRN Reason Stop Dose Admin Acetaminophen 1,000 mg 10/03/17 22:56 10/04/17 02:07 Ofirmev Injection - IVPB 1,000 mg Q6H PRN Administration FEVER Fentanyl 50 mcg 10/03/17 15:07 10/03/17 16:10 Sublimaze Injection - IVPUSH 50 mcg [id number] PRN Administration PAIN-PACU ORDER X 4 DOSES ONLY Heparin Sodium (Porcine) 5,000 unit 10/04/17 14:00 Heparin - SQ TID MARIA Propofol 1,000,000 mcg in 100 mls @ 1.977 mls/hr 10/03/17 14:45 10/04/17 06: 09 Diprivan - IVPUSH 20.99 mcg/kg/min TITR MARIA 8.3 mls/hr Titration Protocol 5 MCG/KG/MIN Lactated Ringer's 1,000 mls @ 125 mls/hr 10/03/17 15:07 10/03/17 15:00 Lactated Ringers Solution IV 125 mls/hr ASDIR MARIA Administration Meropenem 1 gm/ Dextrose 100 mls @ 200 mls/hr 10/03/17 16:45 10/04/17 10:16 IVPB 200 mls/hr Q8H-IV MARIA Administration Morphine Sulfate 4 mg 10/03/17 16:08 10/04/17 03:16 Morphine Sulfate IVPUSH 4 mg Q4H PRN Administration PAIN LEVEL 4-6 Ondansetron HCl 4 mg 10/03/17 15:07 Zofran Injection IVPUSH Q6H PRN NAUSEA Oxycodone HCl 7.5 mg 10/03/17 12:37 Roxicodone - PO Q4H PRN PAIN LEVEL 1-5 Pantoprazole Sodium 40 mg 10/04/17 10:00 10/04/17 10:16 Protonix Iv IVPUSH 40 mg DAILY MARIA Administration Promethazine HCl 12.5 mg 10/03/17 15:07 Phenergan Injection - IVPUSH Q6H PRN NAUSEA-FOR RESCUE AFTER 15 MIN ASSESSMENT/PLAN: 1yow with SBO now s/p exploratory lap POD #1 and small bowel resection in ICU for post-op management NEURO -a/o x 3 -off sedation -at baseline PULM -extubated -now on ventimask -Switch to NC when ready. -maintain O2 sat >90% -incentive spirometry CV -BP stable -cardiac monitoring GI #SBO #S/p ex lap POS #1 -IV fluids -cont. IV abx: meropenem -NPO -NGT -pain control with Morphine, Oxycodone -surgery, GI on board, follow reccs -await return of bowel function #MEMO -cr 1.4 -IV fluids -avoid nephrotoxins -FU AM bmp ID -sepsis likely secondary from SBO -WBC trending down, lactic WNL -afebrile -ID on board -IV abx with Meropenem FEN -IV fluids LR@ 125 -monitor lytes -NPO Ppx Hep SQ Visit type - Emergency Visit Emergency Visit: Yes ED Registration Date: 10/02/17 Care time: The patient presented to the Emergency Department on the above date and was hospitalized for further evaluation of their emergent condition. - New Patient This patient is new to me today: Yes Date on this admission: 10/04/17 - Critical Care Critical Care patient: Yes Total Critical Care Time (in minutes): 40 Critical Care Statement: The care of this patient involved high complexity decision making to prevent further life threatening deterioration of the patient 's condition and/or to evaluate & treat vital organ system(s) failure or risk of failure.
[2017-10-04] MEDS: HEPARIN NA (PORCINE) 5,000 UNITS/ML 1ML VIAL SQ SCH ×2 (15:30→22:30)
[2017-10-04] MEDS: PROPOFOL 1,000,000 MCG/100 ML VIAL IVPUSH SCH (16:56)
[2017-10-04] MEDS: LACTATED RINGERS SOLUTION 1,000 ML IV SCH (16:56)
--- NOTE | 2017-10-04 17:02 | PN ---
Progress Note, Physician History of Present Illness: doing much better extubated ng tube in place says she feels better family in room had a high fever this morning - Current Medication List Current Medications: Active Medications Acetaminophen (Ofirmev Injection -) 1,000 mg IVPB Q6H PRN PRN Reason: FEVER Last Admin: 10/04/17 02:07 Dose: 1,000 mg Heparin Sodium (Porcine) (Heparin -) 5,000 unit SQ TID MARIA Last Admin: 10/04/17 15:30 Dose: 5,000 unit Propofol (Diprivan -) 1,000,000 mcg in 100 mls @ 1.977 mls/hr IVPUSH TITR MARIA; Protocol Last Admin: 10/04/17 16:56 Dose: Not Given Lactated Ringer's (Lactated Ringers Solution) 1,000 mls @ 125 mls/hr IV ASDIR MARIA Last Admin: 10/04/17 16:56 Dose: 125 mls/hr Meropenem 1 gm/ Dextrose 100 mls @ 200 mls/hr IVPB Q8H-IV MARIA Last Admin: 10/04/17 10:16 Dose: 200 mls/hr Morphine Sulfate (Morphine Sulfate) 4 mg IVPUSH Q4H PRN PRN Reason: PAIN LEVEL 4-6 Last Admin: 10/04/17 03:16 Dose: 4 mg Ondansetron HCl (Zofran Injection) 4 mg IVPUSH Q6H PRN PRN Reason: NAUSEA Oxycodone HCl (Roxicodone -) 7.5 mg PO Q4H PRN PRN Reason: PAIN LEVEL 1-5 Pantoprazole Sodium (Protonix Iv) 40 mg IVPUSH DAILY [facility] Last Admin: 10/04/17 10:16 Dose: 40 mg Promethazine HCl (Phenergan Injection -) 12.5 mg IVPUSH Q6H PRN PRN Reason: NAUSEA-FOR RESCUE AFTER 15 MIN - Objective Vital Signs: Vital Signs Temperature 99.5 F 10/04/17 10:00 Pulse Rate 100 H 10/04/17 12:00 Respiratory Rate 20 10/04/17 12:00 Blood Pressure 107/49 10/04/17 12:00 O2 Sat by Pulse Oximetry (%) 95 10/04/17 09:57 Constitutional: Yes: No Distress, Calm HENT: Yes: Atraumatic Neck: Yes: Supple, Trachea Midline Cardiovascular: Yes: Regular Rate and Rhythm Respiratory: Yes: Regular, CTA Bilaterally, Other (absent bowel sounds) Musculoskeletal: Yes: WNL Extremities: Yes: WNL Neurological: Yes: Alert, Oriented Psychiatric: Yes: Alert, Oriented Labs: CBC, BMP 10/04/17 05:30 10/04/17 05:30 INR, PTT INR 1.08 (0.82-1.09) 10/02/17 17:42 Assessment/Plan Problem List - Problems (1) SBO (small bowel obstruction) Code(s): K56.69 - OTHER INTESTINAL OBSTRUCTION * DO NOT USE * (2) Sepsis Code(s): A41.9 - SEPSIS, UNSPECIFIED ORGANISM (3) Hyperlipidemia Code(s): E78.5 - HYPERLIPIDEMIA, UNSPECIFIED (4) Hyperglycemia Code(s): R73.9 - HYPERGLYCEMIA, UNSPECIFIED (5) Lactic acidemia Code(s): E87.2 - ACIDOSIS (6) Ascites Code(s): R18.8 - OTHER ASCITES Qualifiers: Ascites type: other type Qualified Code(s): R18.8 - Other ascites Assessment/Plan continue abx monitor for fever if spikes again cx to be done also monitor closely hydration rest as per icu/surgery cc time 40 min
[2017-10-05] MEDS ORDERED: PT OWN MED DRAWER 7, Y5N ONE ×3 (00:39→19:30)
[2017-10-05] MEDS: ACETAMINOPHEN 1000 MG/100 ML VIAL (NON FORMULARY) IVPB PRN ×2 (00:45→22:00)
[2017-10-05] MEDS: MEROPENEM 1 GM in DEXTROSE 5%-WATER 100 ML IVPB SCH ×3 (01:15→19:32)
[2017-10-05] MEDS: LACTATED RINGERS SOLUTION 1,000 ML IV SCH (02:00)
[2017-10-05] MEDS: HEPARIN NA (PORCINE) 5,000 UNITS/ML 1ML VIAL SQ SCH ×3 (05:36→22:01)
[2017-10-05 06:07] LABS: BASO % 0.1 % (0-2.0); HEMATOCRIT 23.4 % (32.4-45.2); HEMOGLOBIN 7.7 GM/dL (10.7-15.3); LYMPH % 17.8 % (8-40); MCH 29.7 pg (25.7-33.7); MCHC 33.1 g/dl (32.0-36.0); MEAN CELL VOLUME 89.6 fl (80-96); MEAN PLT VOLUME 10.2 fl (7.5-11.1); NEUT % 77.1 % (42.8-82.8); PLATELET COUNT 113 K/MM3 (134-434); RBC 2.61 M/mm3 (3.60-5.2); RDW 14.7 % (11.6-15.6); WHITE BLOOD COUNT 11.6 K/mm3 (4.0-10.0)
[2017-10-05 06:33] LABS: ALBUMIN 1.7 g/dl (3.4-5.0); ANION GAP 5 (8-16); BLOOD UREA NITROGEN 21 mg/dL (7-18); CALCIUM 8.5 mg/dL (8.5-10.1); CHLORIDE 107 mmol/L (98-107); CO2 30 mmol/L (21-32); CREATININE 0.8 mg/dL (0.55-1.02); GLUCOSE,RANDOM 90 mg/dL (74-106); PHOSPHOROUS 2.1 mg/dL (2.5-4.9); SGOT/AST 28 U/L (15-37); SGPT/ALT 20 U/L (12-78); SODIUM 142 mmol/L (136-145)
[2017-10-05 06:34] LABS: ALK PHOS 35 U/L (45-117); BILIRUBIN,TOTAL 0.3 mg/dL (0.2-1.0); TOT PROT 4.2 g/dl (6.4-8.2)
[2017-10-05] MEDS ORDERED: SODIUM CHLORIDE 500 ML IV STA (07:47)
--- NOTE | 2017-10-05 09:22 | PN ---
Progress Note (short form) - Note Progress Note: Post op day#2.P86.BP 111/47 and Spo2 94% on O2 3L NC.Patient stable, extubated and doing well.No any anesthesia related problem.Patient Dc from the anesthesia care.
--- NOTE | 2017-10-05 11:44 | PN ---
Teaching Attending Note Name of Resident: Tanja Alex ATTENDING PHYSICIAN STATEMENT I saw and evaluated the patient. I reviewed the resident's note and discussed the case with the resident. I agree with the resident's findings and plan as documented. SUBJECTIVE: Pt seen and examined in the ICU. Pain controlled with current regimen. Thinks she has some flatus. No shortness of breath or chest pain. OBJECTIVE: Vital Signs Period Temp Pulse Resp BP Sys/Alvarado Pulse Ox Last 24 Hr 98.4 F-100 F 79-100 13-20 98-119/46-54 93-95 Intake & Output 10/02/17 10/03/17 10/04/17 10/05/17 23:59 23:59 23:59 23:59 Intake Total 3300 4139.6 850 Output Total 775 1700 700 Balance 2525 2439.6 150 Weight 66.224 kg 66.134 kg 65.771 kg 67.387 kg Gen: NAD at rest Heart: RRR Lung: decreased breath sounds at the bases Abd: dressings dry Ext: no edema CBC, BMP 10/05/17 05:30 10/05/17 05:30 Active Medications Acetaminophen (Ofirmev Injection -) 1,000 mg IVPB Q6H PRN PRN Reason: FEVER Last Admin: 10/05/17 00:45 Dose: 1,000 mg Heparin Sodium (Porcine) (Heparin -) 5,000 unit SQ TID MARIA Last Admin: 10/05/17 05:36 Dose: 5,000 unit Lactated Ringer's (Lactated Ringers Solution) 1,000 mls @ 125 mls/hr IV ASDIR MARIA Last Admin: 10/05/17 02:00 Dose: 125 mls/hr Meropenem 1 gm/ Dextrose 100 mls @ 200 mls/hr IVPB Q8H-IV MARIA Last Admin: 10/05/17 01:15 Dose: 200 mls/hr Potassium Chloride/Dextrose/Sod Cl (D5-1/2ns+20 Meq Kcl -) 20 meq in 1,000 mls @ 100 mls/hr IV ASDIR MARIA Morphine Sulfate (Morphine Sulfate) 4 mg IVPUSH Q4H PRN PRN Reason: PAIN LEVEL 4-6 Last Admin: 10/04/17 03:16 Dose: 4 mg Ondansetron HCl (Zofran Injection) 4 mg IVPUSH Q6H PRN PRN Reason: NAUSEA Oxycodone HCl (Roxicodone -) 7.5 mg PO Q4H PRN PRN Reason: PAIN LEVEL 1-5 Pantoprazole Sodium (Protonix Iv) 40 mg IVPUSH DAILY MARIA Last Admin: 10/04/17 10:16 Dose: 40 mg Promethazine HCl (Phenergan Injection -) 12.5 mg IVPUSH Q6H PRN PRN Reason: NAUSEA-FOR RESCUE AFTER 15 MIN ASSESSMENT AND PLAN: Small Bowel Obstruction s/p ex-lap/resection of 4ft SB Sepsis Acute Kidney Injury Lactic Acidosis Hyperlipidemia - continue antibiotics - IVF - monitor urine output, creatinine - pain control - incentive spirometry - O2 to keep SpO2 >90% - NPO - await return of bowel function - DVT prophylaxis - can monitor on floor if ok with surgery
[2017-10-05] MEDS ORDERED: D5-1/2NS+20 MEQ KCL - 20 MEQ/1,000 ML INFUS.BAG IV SCH (11:45)
[2017-10-05] MEDS ORDERED: BENZOCAINE/MENTH/CETYLPYRD CL 1 EACH LOZENGE MM PRN (12:01)
[2017-10-05] MEDS: PANTOPRAZOLE SODIUM 40 MG VIAL IVPUSH SCH (12:11)
--- NOTE | 2017-10-05 13:22 | PN ---
Progress Note, Physician Chief Complaint: Ms Springer says she is feeling better. No cp, sob, n/v. - Current Medication List Current Medications: Active Medications Acetaminophen (Ofirmev Injection -) 1,000 mg IVPB Q6H PRN PRN Reason: FEVER Last Admin: 10/05/17 00:45 Dose: 1,000 mg Benzocaine/Menthol (Cepacol Lozenge -) 1 each MM PRN PRN PRN Reason: SORE THROAT Heparin Sodium (Porcine) (Heparin -) 5,000 unit SQ TID MARIA Last Admin: 10/05/17 05:36 Dose: 5,000 unit Lactated Ringer's (Lactated Ringers Solution) 1,000 mls @ 125 mls/hr IV ASDIR [facility] Last Admin: 10/05/17 02:00 Dose: 125 mls/hr Meropenem 1 gm/ Dextrose 100 mls @ 200 mls/hr IVPB Q8H-IV [facility] Last Admin: 10/05/17 12:09 Dose: 200 mls/hr Potassium Chloride/Dextrose/Sod Cl (D5-1/2ns+20 Meq Kcl -) 20 meq in 1,000 mls @ 100 mls/hr IV ASDIR [facility] Last Admin: 10/05/17 12:13 Dose: 100 mls/hr Morphine Sulfate (Morphine Sulfate) 4 mg IVPUSH Q4H PRN PRN Reason: PAIN LEVEL 4-6 Last Admin: 10/04/17 03:16 Dose: 4 mg Ondansetron HCl (Zofran Injection) 4 mg IVPUSH Q6H PRN PRN Reason: NAUSEA Oxycodone HCl (Roxicodone -) 7.5 mg PO Q4H PRN PRN Reason: PAIN LEVEL 1-5 Pantoprazole Sodium (Protonix Iv) 40 mg IVPUSH DAILY [facility] Last Admin: 10/05/17 12:11 Dose: 40 mg Promethazine HCl (Phenergan Injection -) 12.5 mg IVPUSH Q6H PRN PRN Reason: NAUSEA-FOR RESCUE AFTER 15 MIN - Objective Vital Signs: Vital Signs Temperature 36.9 C 10/05/17 06:00 Pulse Rate 79 10/05/17 06:00 Respiratory Rate 18 10/05/17 06:00 Blood Pressure 102/46 10/05/17 06:00 O2 Sat by Pulse Oximetry (%) 95 10/04/17 21:00 Constitutional: Yes: Well Nourished, No Distress, Calm Cardiovascular: Yes: Regular Rate and Rhythm. No: Gallop, Murmur, Rub Respiratory: Yes: Regular, CTA Bilaterally. No: Rales, Rhonchi, Wheezes Gastrointestinal: Yes: Soft, Distention, Hypoactive Bowel Sounds, Tenderness ( slight). No: Normal Bowel Sounds Extremities: Yes: WNL Edema: No Labs: CBC, BMP 10/05/17 05:30 10/05/17 05:30 INR, PTT INR 1.08 (0.82-1.09) 10/02/17 17:42 Problem List - Problems (1) SBO (small bowel obstruction) Code(s): K56.69 - OTHER INTESTINAL OBSTRUCTION * DO NOT USE * (2) Sepsis Code(s): A41.9 - SEPSIS, UNSPECIFIED ORGANISM (3) Hyperlipidemia Code(s): E78.5 - HYPERLIPIDEMIA, UNSPECIFIED (4) Hyperglycemia Code(s): R73.9 - HYPERGLYCEMIA, UNSPECIFIED (5) Lactic acidemia Code(s): E87.2 - ACIDOSIS (6) Ascites Code(s): R18.8 - OTHER ASCITES Qualifiers: Ascites type: other type Qualified Code(s): R18.8 - Other ascites Assessment/Plan (1) SBO (small bowel obstruction) Assessment/Plan: -s/p ex lap with resection -surgery note reviewed -continue NPO and NGT -surgery following Code(s): K56.69 - OTHER INTESTINAL OBSTRUCTION * DO NOT USE * (2) Sepsis Assessment/Plan -resolving -continue levaquin and flagyl Code(s): A41.9 - SEPSIS, UNSPECIFIED ORGANISM (3) Hyperlipidemia Assessment/Plan: -hold statin currently Code(s): E78.5 - HYPERLIPIDEMIA, UNSPECIFIED (4) Hyperglycemia Assessment/Plan: -resolved Code(s): R73.9 - HYPERGLYCEMIA, UNSPECIFIED (5) Lactic acidemia Assessment/Plan: -resolved Code(s): E87.2 - ACIDOSIS (6) Ascites Assessment/Plan: -suspect reactive -noted on CT scan Code(s): R18.8 - OTHER ASCITES Qualifiers: Ascites type: other type Qualified Code(s): R18.8 - Other ascites (7) Acute blood loss anemia -case d/w patient -consents to blood transfusion -will transfuse 2 units
--- NOTE | 2017-10-05 13:35 | PN ---
Progress Note (short form) - Note Progress Note: surgery pt seen and examined. awake and alert. reading the news paper. no pain. no flatus afebrile, vss abd- soft, mild distension, dressing c/d/i u/o 1600 in 24 hours ngt 100 Laboratory Tests 10/05/17 05:30 WBC 11.6 H Hgb 7.7 L A/P 1) Pod#2- cont npo, ngt, jeffrey per icu, ivf 2) ischemic bowel- s/p resection, follow path. cont iv abx per id. wbc dropping. lactate normal 3) arf- resolved 4) prophylaxis- lovenox, protonix, oob spirometer 5) post operative ileus- should last 3-5 days. 6) low hgb- likely error. clinically not bleeding. significant amount of blood was withing the segment of bowel.
[2017-10-05 13:46] LABS: HEMATOCRIT 23.8 % (32.4-45.2); HEMOGLOBIN 7.8 GM/dL (10.7-15.3); MCH 29.2 pg (25.7-33.7); MCHC 32.6 g/dl (32.0-36.0); MEAN CELL VOLUME 89.6 fl (80-96); MEAN PLT VOLUME 9.9 fl (7.5-11.1); PLATELET COUNT 118 K/MM3 (134-434); RBC 2.66 M/mm3 (3.60-5.2); RDW 15.2 % (11.6-15.6); WHITE BLOOD COUNT 12.2 K/mm3 (4.0-10.0)
--- NOTE | 2017-10-05 14:07 | PN ---
Physical Exam: SUBJECTIVE: Patient seen and examined. Offers no new complaints. Says abdominal pain is controlled with medications. Has been passing gas. No BM. Denies chest pain, sob, nausea, vomiting, fevers. 3L Nasal cannula. OBJECTIVE: Vital Signs Period Temp Pulse Resp BP Sys/Alvarado Pulse Ox Last 24 Hr 98.4 F-100 F 79-97 13-20 98-119/46-54 93-95 GENERAL: awake, alert in NAD EYES: PERRL, sclera anicteric, conjunctiva clear. ENT: moist mucous membranes. NECK: supple. LUNGS: decreased breath sounds, no wheezing HEART: RRR, no murmurs appreciated ABDOMEN: Surgical dressing in place. no signs of bleeding. distended, hypoactive bowel sounds EXTREMITIES: 2+ pulses, warm, no edema. NEUROLOGICAL: Cranial nerves II through XII grossly intact. Rectal exam: no visible blood Laboratory Results - last 24 hr 10/05/17 10/05/17 10/05/17 05:30 05:30 09:45 WBC 11.6 H RBC 2.61 L Hgb 7.7 L Hct 23.4 L D MCV 89.6 MCH 29.7 MCHC 33.1 RDW 14.7 Plt Count 113 L D MPV 10.2 Absolute Neuts (auto) 8.9 Neutrophils % 77.1 Lymphocytes % 17.8 D Monocytes % 5.0 Eosinophils % 0.0 Basophils % 0.1 Nucleated RBC % 0 Sodium 142 Potassium 4.0 Chloride 107 Carbon Dioxide 30 Anion Gap 5 L BUN 21 H Creatinine 0.8 Creat Clearance w eGFR > 60 Random Glucose 90 Calcium 8.5 Phosphorus 2.1 L Magnesium 2.0 Total Bilirubin 0.3 AST 28 ALT 20 Alkaline Phosphatase 35 L D Total Protein 4.2 L Albumin 1.7 L Stool Occult Blood Negative 10/05/17 13:30 WBC 12.2 H RBC 2.66 L Hgb 7.8 L Hct 23.8 L MCV 89.6 MCH 29.2 MCHC 32.6 RDW 15.2 Plt Count 118 L MPV 9.9 Absolute Neuts (auto) Neutrophils % Lymphocytes % Monocytes % Eosinophils % Basophils % Nucleated RBC % Sodium Potassium Chloride Carbon Dioxide Anion Gap BUN Creatinine Creat Clearance w eGFR Random Glucose Calcium Phosphorus Magnesium Total Bilirubin AST ALT Alkaline Phosphatase Total Protein Albumin Stool Occult Blood Active Medications Generic Name Dose Route Start Last Admin Trade Name Freq PRN Reason Stop Dose Admin Acetaminophen 1,000 mg 10/03/17 22:56 10/05/17 00:45 Ofirmev Injection - IVPB 1,000 mg Q6H PRN Administration FEVER Benzocaine/Menthol 1 each 10/05/17 12:01 Cepacol Lozenge - MM PRN PRN SORE THROAT Heparin Sodium (Porcine) 5,000 unit 10/04/17 14:00 10/05/17 05:36 Heparin - SQ 5,000 unit TID MARIA Administration Lactated Ringer's 1,000 mls @ 125 mls/hr 10/03/17 15:07 10/05/17 02:00 Lactated Ringers Solution IV 125 mls/hr ASDIR MARIA Administration Meropenem 1 gm/ Dextrose 100 mls @ 200 mls/hr 10/03/17 16:45 10/05/17 12:09 IVPB 200 mls/hr Q8H-IV MARIA Administration Potassium Chloride/Dextrose/Sod Cl 20 meq in 1,000 mls @ 100 mls/hr 10/05/17 11:45 10/05/17 12:13 D5-1/2ns+20 Meq Kcl - IV 100 mls/hr ASDIR MARIA Administration Morphine Sulfate 4 mg 10/03/17 16:08 10/04/17 03:16 Morphine Sulfate IVPUSH 4 mg Q4H PRN Administration PAIN LEVEL 4-6 Ondansetron HCl 4 mg 10/03/17 15:07 Zofran Injection IVPUSH Q6H PRN NAUSEA Oxycodone HCl 7.5 mg 10/03/17 12:37 Roxicodone - PO Q4H PRN PAIN LEVEL 1-5 Pantoprazole Sodium 40 mg 10/04/17 10:00 10/05/17 12:11 Protonix Iv IVPUSH 40 mg DAILY MARIA Administration Promethazine HCl 12.5 mg 10/03/17 15:07 Phenergan Injection - IVPUSH Q6H PRN NAUSEA-FOR RESCUE AFTER 15 MIN ASSESSMENT/PLAN: 81yow with SBO now s/p exploratory lap POD #2 and small bowel resection in ICU for post-op management NEURO -a/o x 3 -off sedation -at baseline PULM -extubated 10/04 -Doing well on 2 L NC -maintain O2 sat >90% -incentive spirometry CV -cardiac monitoring GI #SBO #S/p ex lap POS #2 -IV fluids -cont. IV abx: meropenem -NPO -NGT -pain control with Morphine, Oxycodone -surgery, GI on board, follow reccs -await return of bowel function -Hgb 7.6, repeat 7.8 -negative FOBT -monitor H&H #MEMO -resolved -IV fluids -avoid nephrotoxins -FU AM bmp ID -sepsis likely secondary from SBO -WBC trending down -afebrile -ID on board -IV abx with Meropenem FEN -IV fluids D5 1/2 NS with K -monitor lytes -NPO Ppx Hep SQ Transfer Med-surge Visit type - Emergency Visit Emergency Visit: Yes ED Registration Date: 10/02/17 Care time: The patient presented to the Emergency Department on the above date and was hospitalized for further evaluation of their emergent condition. - New Patient This patient is new to me today: No - Critical Care Critical Care patient: Yes Total Critical Care Time (in minutes): 40 Critical Care Statement: The care of this patient involved high complexity decision making to prevent further life threatening deterioration of the patient 's condition and/or to evaluate & treat vital organ system(s) failure or risk of failure.
[2017-10-05] MEDS ORDERED: NAPH,MB-DB/K PH,MBDB POWDER PACKET PO ONE (14:08)
--- NOTE | 2017-10-05 15:28 | PN ---
Progress Note, Physician History of Present Illness: patient stable no complaints post op doing well low h and h - Current Medication List Current Medications: Active Medications Acetaminophen (Ofirmev Injection -) 1,000 mg IVPB Q6H PRN PRN Reason: FEVER Last Admin: 10/05/17 00:45 Dose: 1,000 mg Benzocaine/Menthol (Cepacol Lozenge -) 1 each MM PRN PRN PRN Reason: SORE THROAT Heparin Sodium (Porcine) (Heparin -) 5,000 unit SQ TID [facility] Last Admin: 10/05/17 05:36 Dose: 5,000 unit Lactated Ringer's (Lactated Ringers Solution) 1,000 mls @ 125 mls/hr IV ASDIR [facility] Last Admin: 10/05/17 02:00 Dose: 125 mls/hr Meropenem 1 gm/ Dextrose 100 mls @ 200 mls/hr IVPB Q8H-IV [facility] Last Admin: 10/05/17 12:09 Dose: 200 mls/hr Potassium Chloride/Dextrose/Sod Cl (D5-1/2ns+20 Meq Kcl -) 20 meq in 1,000 mls @ 100 mls/hr IV ASDIR [facility] Last Admin: 10/05/17 12:13 Dose: 100 mls/hr Morphine Sulfate (Morphine Sulfate) 4 mg IVPUSH Q4H PRN PRN Reason: PAIN LEVEL 4-6 Last Admin: 10/04/17 03:16 Dose: 4 mg Ondansetron HCl (Zofran Injection) 4 mg IVPUSH Q6H PRN PRN Reason: NAUSEA Oxycodone HCl (Roxicodone -) 7.5 mg PO Q4H PRN PRN Reason: PAIN LEVEL 1-5 Pantoprazole Sodium (Protonix Iv) 40 mg IVPUSH DAILY [facility] Last Admin: 10/05/17 12:11 Dose: 40 mg Promethazine HCl (Phenergan Injection -) 12.5 mg IVPUSH Q6H PRN PRN Reason: NAUSEA-FOR RESCUE AFTER 15 MIN - Objective Vital Signs: Vital Signs Temperature 98.4 F 10/05/17 06:00 Pulse Rate 79 10/05/17 06:00 Respiratory Rate 18 10/05/17 06:00 Blood Pressure 102/46 10/05/17 06:00 O2 Sat by Pulse Oximetry (%) 95 10/04/17 21:00 Constitutional: Yes: No Distress, Calm Cardiovascular: Yes: Regular Rate and Rhythm Respiratory: Yes: Regular, CTA Bilaterally Gastrointestinal: Yes: Soft, Hypoactive Bowel Sounds, Other Musculoskeletal: Yes: WNL Extremities: Yes: WNL Wound/Incision: Yes: Clean/Dry Neurological: Yes: Alert, Oriented Psychiatric: Yes: Alert, Oriented Labs: CBC, BMP 10/05/17 13:30 10/05/17 05:30 INR, PTT INR 1.08 (0.82-1.09) 10/02/17 17:42 Assessment/Plan Problem List - Problems (1) SBO (small bowel obstruction) Code(s): K56.69 - OTHER INTESTINAL OBSTRUCTION * DO NOT USE * (2) Sepsis Code(s): A41.9 - SEPSIS, UNSPECIFIED ORGANISM (3) Hyperlipidemia Code(s): E78.5 - HYPERLIPIDEMIA, UNSPECIFIED (4) Hyperglycemia Code(s): R73.9 - HYPERGLYCEMIA, UNSPECIFIED (5) Lactic acidemia Code(s): E87.2 - ACIDOSIS (6) Ascites Code(s): R18.8 - OTHER ASCITES Qualifiers: Ascites type: other type Qualified Code(s): R18.8 - Other ascites Assessment/Plan continue abx monitor for fever if spikes again cx to be done also monitor closely hydration monitor h and h rest as per icu/surgery cc time 40 min
[2017-10-05] MEDS ORDERED: SODIUM PHOSPHATE - 30 MM in SODIUM CHLORIDE 250 ML IVPB ONE (16:30)
--- NOTE | 2017-10-05 17:39 | PATH ---
Surgical Pathology Report Patient Name: OSWALDO JOSHI [facility]. Rec. 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 Specimen(s) Received SMALL BOWEL,SEGMENTAL RESECTION OTHER THAN TUMOR Clinical History Ascites, small bowel obstruction Final Diagnosis 4 FEET INFARCTED SMALL BOWEL, RESECTION: SEGMENT OF SMALL BOWEL SHOWING MUCOSA AND SUBMUCOSAL TISSUE NECROSIS WITH FOCAL ACUTE INFLAMMATION. TRANSMURAL HEMORRHAGE, EXTENDING INTO MESENTERIC FATTY TISSUE, WITH MARKED VASCULAR CONGESTION. VIABLE MARGINS WITH MARKED SUBMUCOSAL EDEMA. Electronically Signed Finesse Carmichael M.D. Gross Description Received in formalin labeled "4 feet infarcted small bowel," is a 110 cm in length infarcted portion of small bowel with 2 stapled mucosal margins and moderate attached fat. The bowel appears intact and no rupture sites are identified grossly. The serosa is red-brown and dusky. The mucosa is dark red and hemorrhagic. The bowel lumen contains red blood. No mucosal masses are identified. Scrap Worker sections are submitted in 7 cassettes as follows: 1-3-[id number] stapled mucosal margins; 9-6-[id number], sequentially submitted portions of bowel. 10/04/201710/04/2017
[2017-10-05] MEDS: D5-1/2NS+20 MEQ KCL - 20 MEQ/1,000 ML INFUS.BAG IV SCH (19:33)
[2017-10-06] MEDS ORDERED: PT OWN MED DRAWER 7, Y5N ONE ×3 (01:56→18:15)
[2017-10-06] MEDS: MEROPENEM 1 GM in DEXTROSE 5%-WATER 100 ML IVPB SCH ×3 (02:03→19:00)
[2017-10-06] MEDS: morphine SULFATE 4 MG/ML VIAL IVPUSH PRN (02:12)
[2017-10-06] MEDS: HEPARIN NA (PORCINE) 5,000 UNITS/ML 1ML VIAL SQ SCH ×3 (06:49→22:21)
[2017-10-06 06:56] LABS: BASO % 0.3 % (0-2.0); EOS % 0.4 % (0-4.5); HEMATOCRIT 28.7 % (32.4-45.2); HEMOGLOBIN 9.7 GM/dL (10.7-15.3); LYMPH % 14.4 % (8-40); MCH 29.2 pg (25.7-33.7); MCHC 33.8 g/dl (32.0-36.0); MEAN CELL VOLUME 86.4 fl (80-96); MEAN PLT VOLUME 9.5 fl (7.5-11.1); MONO % 5.3 % (3.8-10.2); NEUT % 79.6 % (42.8-82.8); PLATELET COUNT 135 K/MM3 (134-434); RBC 3.32 M/mm3 (3.60-5.2); RDW 15.2 % (11.6-15.6); WHITE BLOOD COUNT 11.9 K/mm3 (4.0-10.0)
[2017-10-06 08:06] LABS: ALBUMIN 1.7 g/dl (3.4-5.0); ANION GAP 7 (8-16); BILIRUBIN,TOTAL 0.6 mg/dL (0.2-1.0); BLOOD UREA NITROGEN 15 mg/dL (7-18); CALCIUM 8.2 mg/dL (8.5-10.1); CHLORIDE 108 mmol/L (98-107); CO2 29 mmol/L (21-32); CREATININE 0.5 mg/dL (0.55-1.02); GLUCOSE,RANDOM 95 mg/dL (74-106); MAGNESIUM 2.1 mg/dL (1.8-2.4); PHOSPHOROUS 2.7 mg/dL (2.5-4.9); POTASSIUM 3.4 mmol/L (3.5-5.1); SGOT/AST 96 U/L (15-37); SGPT/ALT 71 U/L (12-78); SODIUM 144 mmol/L (136-145); TOT PROT 4.6 g/dl (6.4-8.2)
[2017-10-06 08:07] LABS: ALK PHOS 45 U/L (45-117)
--- NOTE | 2017-10-06 10:21 | PN ---
Progress Note (short form) - Note Progress Note: Pulm/CCM SUBJECTIVE: Pt seen and examined in the ICU. 24Hr - has BS - Crit stable without transfusion -stable OBJECTIVE: Vital Signs Temp 99 F 10/06/17 06:00 Pulse 76 10/06/17 08:00 Resp 18 10/06/17 08:00 BP 129/61 10/06/17 08:00 Pulse Ox 95 10/05/17 20:12 Intake & Output 10/05/17 10/05/17 10/06/17 11:59 23:59 11:59 Intake Total 850 2100 1300 Output Total 700 1230 Balance 150 2100 70 Weight 67.387 kg 67.387 kg Intake: IV 750 1650 600 D5-1/2NS+20 MEQ KCL - 20 400 meq In 1,000 ml @ 100 mls /hr IV ASDIR [facility] Rx#: [id number] D5-1/2NS+20 MEQ KCL - 20 1250 600 meq In 1,000 ml @ 125 mls /hr IV ASDIR [facility] Rx#: [id number] Lactated Ringers Solution 750 1,000 ml @ 125 mls/hr IV ASDIR [facility] Rx#: [id number] IVPB 100 450 Oral 0 0 Packed Cells 700 Output: Gastric Drainage 100 30 Urine 600 1200 Sotelo 600 1200 Other: Voiding Method Indwelling Catheter Indwelling Catheter Bowel Movement No Weight Measurement Method [facility] Gen: NAD at rest Heart: RRR Lung: decreased breath sounds at the bases Abd: dressings dry, + BS Ext: no edema Neuro: lightly confused, Non focal CBCD WBC 11.9 K/mm3 (4.0-10.0) H 10/06/17 06:10 RBC 3.32 M/mm3 (3.60-5.2) L 10/06/17 06:10 Hgb 9.7 GM/dL (10.7-15.3) L 10/06/17 06:10 Hct 28.7 % (32.4-45.2) L D 10/06/17 06:10 MCV 86.4 fl (80-96) 10/06/17 06:10 MCHC 33.8 g/dl (32.0-36.0) 10/06/17 06:10 RDW 15.2 % (11.6-15.6) 10/06/17 06:10 Plt Count 135 K/MM3 (134-434) 10/06/17 06:10 MPV 9.5 fl (7.5-11.1) 10/06/17 06:10 CMP Sodium 144 mmol/L (136-145) 10/06/17 06:10 Potassium 3.4 mmol/L (3.5-5.1) L 10/06/17 06:10 Chloride 108 mmol/L (98-107) H 10/06/17 06:10 Carbon Dioxide 29 mmol/L (21-32) 10/06/17 06:10 Anion Gap 7 (8-16) L 10/06/17 06:10 BUN 15 mg/dL (7-18) 10/06/17 06:10 Creatinine 0.5 mg/dL (0.55-1.02) L 10/06/17 06:10 Creat Clearance w eGFR > 60 (>60) 10/06/17 06:10 Calcium 8.2 mg/dL (8.5-10.1) L 10/06/17 06:10 Total Bilirubin 0.6 mg/dL (0.2-1.0) 10/06/17 06:10 AST 96 U/L (15-37) H 10/06/17 06:10 ALT 71 U/L (12-78) 10/06/17 06:10 Alkaline Phosphatase 45 U/L (45-117) D 10/06/17 06:10 Total Protein 4.6 g/dl (6.4-8.2) L 10/06/17 06:10 Albumin 1.7 g/dl (3.4-5.0) L 10/06/17 06:10 Current Medications Acetaminophen (Ofirmev Injection -) 1,000 mg IVPB Q6H PRN PRN Reason: FEVER Last Admin: 10/05/17 22:00 Dose: 1,000 mg Benzocaine/Menthol (Cepacol Lozenge -) 1 each MM PRN PRN PRN Reason: SORE THROAT Heparin Sodium (Porcine) (Heparin -) 5,000 unit SQ TID [facility] Last Admin: 10/06/17 06:49 Dose: 5,000 unit Meropenem 1 gm/ Dextrose 100 mls @ 200 mls/hr IVPB Q8H-IV [facility] Last Admin: 10/06/17 02:03 Dose: 200 mls/hr Potassium Chloride/Dextrose/Sod Cl (D5-1/2ns+20 Meq Kcl -) 20 meq in 1,000 mls @ 125 mls/hr IV ASDIR [facility] Last Admin: 10/05/17 19:33 Dose: Not Given Morphine Sulfate (Morphine Sulfate) 4 mg IVPUSH Q4H PRN PRN Reason: PAIN LEVEL 4-6 Last Admin: 10/06/17 02:12 Dose: 4 mg Ondansetron HCl (Zofran Injection) 4 mg IVPUSH Q6H PRN PRN Reason: NAUSEA Oxycodone HCl (Roxicodone -) 7.5 mg PO Q4H PRN PRN Reason: PAIN LEVEL 1-5 Pantoprazole Sodium (Protonix Iv) 40 mg IVPUSH DAILY [facility] Last Admin: 10/05/17 12:11 Dose: 40 mg Promethazine HCl (Phenergan Injection -) 12.5 mg IVPUSH Q6H PRN PRN Reason: NAUSEA-FOR RESCUE AFTER 15 MIN PRN Reason: NAUSEA-FOR RESCUE AFTER 15 MIN ASSESSMENT AND PLAN: Small Bowel Obstruction s/p ex-lap/resection of 4ft SB Sepsis Acute Kidney Injury Lactic Acidosis Hyperlipidemia - continue antibiotics as per ID - IVF - NGT - pain control - incentive spirometry - O2 to keep SpO2 >90% - NPO---advance as per surgery, has BS, no BM - DVT prophylaxis - OOB today - can monitor on floor Dagmar ACNP [id number] 35min CCT
[2017-10-06] MEDS: PANTOPRAZOLE SODIUM 40 MG VIAL IVPUSH SCH (11:04)
--- NOTE | 2017-10-06 13:02 | PN ---
Progress Note (short form) - Note Progress Note: surgery pt off unit for ct scan because or air pocket seen in cxr under right diaphragm. this is expected after laparotomy. would expect ct to show free air , free fluid, thickened bowel around anastamosis, air fluid level in wound, atelectasis. pt received 2 uprbc afebrile Laboratory Tests 10/06/17 10/06/17 06:10 06:10 Hgb 9.7 L Plt Count 135 Potassium 3.4 L A/P 1) Pod#3- cont npo, ngt, jeffrey per icu, ivf 2) ischemic bowel- s/p resection, follow path. cont iv abx per id. wbc wnl. lactate normal. 3) arf- resolved 4) prophylaxis- consider resume lovenox, cont protonix, oob spirometer 5) post operative ileus- should last 3-5 days. 6) low hgb- clinically not bleeding. significant amount of blood was within the segment of bowel. stable after transfusion Ct will only add confusion to clinical picture.
--- NOTE | 2017-10-06 14:19 | PN ---
Progress Note, Physician Chief Complaint: Feels less abd discomfort no BM or flatus but denies any worsening pain or distention. History of Present Illness: 81 y/o woman H/O Mild Dementia, SBO, Ascites (Exp 2015). admitted with SBO underwent Ischemic bowel resection and drainage of hemorrhagic ascites 0n 2017 - Current Medication List Current Medications: Active Medications Acetaminophen (Ofirmev Injection -) 1,000 mg IVPB Q6H PRN PRN Reason: FEVER Last Admin: 10/05/17 22:00 Dose: 1,000 mg Benzocaine/Menthol (Cepacol Lozenge -) 1 each MM PRN PRN PRN Reason: SORE THROAT Heparin Sodium (Porcine) (Heparin -) 5,000 unit SQ TID [facility] Last Admin: 10/06/17 06:49 Dose: 5,000 unit Meropenem 1 gm/ Dextrose 100 mls @ 200 mls/hr IVPB Q8H-IV [facility] Last Admin: 10/06/17 11:04 Dose: 200 mls/hr Potassium Chloride/Dextrose/Sod Cl (D5-1/2ns+20 Meq Kcl -) 20 meq in 1,000 mls @ 125 mls/hr IV ASDIR [facility] Last Admin: 10/05/17 19:33 Dose: Not Given Morphine Sulfate (Morphine Sulfate) 4 mg IVPUSH Q4H PRN PRN Reason: PAIN LEVEL 4-6 Last Admin: 10/06/17 02:12 Dose: 4 mg Ondansetron HCl (Zofran Injection) 4 mg IVPUSH Q6H PRN PRN Reason: NAUSEA Pantoprazole Sodium (Protonix Iv) 40 mg IVPUSH DAILY [facility] Last Admin: 10/06/17 11:04 Dose: 40 mg Promethazine HCl (Phenergan Injection -) 12.5 mg IVPUSH Q6H PRN PRN Reason: NAUSEA-FOR RESCUE AFTER 15 MIN - Objective Vital Signs: Vital Signs Temperature 99 F 10/06/17 06:00 Pulse Rate 74 10/06/17 12:36 Respiratory Rate 18 10/06/17 12:36 Blood Pressure 125/75 10/06/17 12:36 O2 Sat by Pulse Oximetry (%) 95 10/06/17 09:00 Elderly F not in distress HEENT: Mm moist, NG tube at place NECK: No JVD No Bruit, Trachea central CHEST: CTA B/L CVS: S1S2 R no murmur/ Gallop or Rub ABD: S/p surgery mild tenderness and distention BS + EXT: Trace edema, Pulses + 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 Post Op care as surgery consult. Code(s): K56.69 - OTHER INTESTINAL OBSTRUCTION * DO NOT USE * (2) Sepsis Assessment/Plan: Due to Bowel Ischemia improving after surgery and IV abx Code(s): A41.9 - SEPSIS, UNSPECIFIED ORGANISM (3) Postoperative anemia due to acute blood loss Assessment/Plan: Due to hemorrhagic ischemic bowel H/H stable after transfusion Code(s): D62 - ACUTE POSTHEMORRHAGIC ANEMIA (4) S/P small bowel resection Assessment/Plan: S/P samall bowel resection on 10/03/2017, post Op care as surgery team. Code(s): Z90.49 - ACQUIRED ABSENCE OF OTHER SPECIFIED PARTS OF DIGESTIVE TRACT
[2017-10-06] MEDS: D5-1/2NS+20 MEQ KCL - 20 MEQ/1,000 ML INFUS.BAG IV SCH (19:00)
[2017-10-06] MEDS: ACETAMINOPHEN 1000 MG/100 ML VIAL (NON FORMULARY) IVPB PRN (22:08)
[2017-10-07] MEDS: MEROPENEM 1 GM in DEXTROSE 5%-WATER 100 ML IVPB SCH ×3 (03:24→18:05)
[2017-10-07] MEDS: D5-1/2NS+20 MEQ KCL - 20 MEQ/1,000 ML INFUS.BAG IV SCH (06:29)
[2017-10-07] MEDS: HEPARIN NA (PORCINE) 5,000 UNITS/ML 1ML VIAL SQ SCH ×3 (06:29→21:12)
[2017-10-07 06:30] LABS: BASO % 0.3 % (0-2.0); HEMATOCRIT 29.8 % (32.4-45.2); HEMOGLOBIN 10.1 GM/dL (10.7-15.3); LYMPH % 14.1 % (8-40); MCH 29.2 pg (25.7-33.7); MCHC 33.9 g/dl (32.0-36.0); MEAN PLT VOLUME 9.8 fl (7.5-11.1); MONO % 7.2 % (3.8-10.2); NEUT % 77.4 % (42.8-82.8); PLATELET COUNT 177 K/MM3 (134-434); RBC 3.47 M/mm3 (3.60-5.2); RDW 15.5 % (11.6-15.6); WHITE BLOOD COUNT 11.1 K/mm3 (4.0-10.0)
[2017-10-07 06:31] LABS: ANION GAP 5 (8-16); BLOOD UREA NITROGEN 10 mg/dL (7-18); CALCIUM 8.3 mg/dL (8.5-10.1); CHLORIDE 106 mmol/L (98-107); CO2 29 mmol/L (21-32); CREATININE 0.4 mg/dL (0.55-1.02); GLUCOSE,RANDOM 122 mg/dL (74-106); POTASSIUM 3.8 mmol/L (3.5-5.1); SODIUM 140 mmol/L (136-145)
[2017-10-07] MEDS ORDERED: PT OWN MED DRAWER 7, Y5N ONE (09:34)
[2017-10-07] MEDS: PANTOPRAZOLE SODIUM 40 MG VIAL IVPUSH SCH (09:40)
--- NOTE | 2017-10-07 11:21 | PN ---
Progress Note, Physician Chief Complaint: Feels less abd discomfort had BM and flatus but denies any worsening pain or distention. History of Present Illness: 81 y/o woman H/O Mild Dementia, SBO, Ascites (Exp 2015). admitted with SBO underwent Ischemic bowel resection and drainage of hemorrhagic ascites 0n 2017 - Current Medication List Current Medications: Active Medications Benzocaine/Menthol (Cepacol Lozenge -) 1 each MM PRN PRN PRN Reason: SORE THROAT Heparin Sodium (Porcine) (Heparin -) 5,000 unit SQ TID [facility] Last Admin: 10/07/17 06:29 Dose: 5,000 unit Meropenem 1 gm/ Dextrose 100 mls @ 200 mls/hr IVPB Q8H-IV [facility] Last Admin: 10/07/17 09:40 Dose: 200 mls/hr Potassium Chloride/Dextrose/Sod Cl (D5-1/2ns+20 Meq Kcl -) 20 meq in 1,000 mls @ 125 mls/hr IV ASDIR [facility] Last Admin: 10/07/17 06:29 Dose: 125 mls/hr Ondansetron HCl (Zofran Injection) 4 mg IVPUSH Q6H PRN PRN Reason: NAUSEA Pantoprazole Sodium (Protonix Iv) 40 mg IVPUSH DAILY [facility] Last Admin: 10/07/17 09:40 Dose: 40 mg Promethazine HCl (Phenergan Injection -) 12.5 mg IVPUSH Q6H PRN PRN Reason: NAUSEA-FOR RESCUE AFTER 15 MIN - Objective Vital Signs: Vital Signs Temperature 99.1 F 10/07/17 09:39 Pulse Rate 85 10/07/17 09:39 Respiratory Rate 22 10/07/17 09:39 Blood Pressure 145/87 10/07/17 09:39 O2 Sat by Pulse Oximetry (%) 94 L 10/07/17 07:40 Elderly F not in distress HEENT: Mm moist, NG tube at place NECK: No JVD No Bruit, Trachea central CHEST: CTA B/L CVS: S1S2 R no murmur/ Gallop or Rub ABD: S/p surgery mild tenderness and distention BS + EXT: Trace edema, 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 Post Op care as surgery consult. Code(s): K56.69 - OTHER INTESTINAL OBSTRUCTION * DO NOT USE * (2) Sepsis Assessment/Plan: Due to Bowel Ischemia improving after surgery and IV abx Code(s): A41.9 - SEPSIS, UNSPECIFIED ORGANISM (3) Postoperative anemia due to acute blood loss Assessment/Plan: Due to hemorrhagic ischemic bowel H/H stable after transfusion Code(s): D62 - ACUTE POSTHEMORRHAGIC ANEMIA (4) S/P small bowel resection Assessment/Plan: S/P samall bowel resection on 10/03/2017, post Op care as surgery team. Code(s): Z90.49 - ACQUIRED ABSENCE OF OTHER SPECIFIED PARTS OF DIGESTIVE TRACT
--- NOTE | 2017-10-07 11:31 | PN ---
Progress Note (short form) - Note Progress Note: Pulm/CCM SUBJECTIVE: Pt seen and examined in the ICU. 24Hr - has BS but still no BM, has flatus - Crit stable > 48hrs OBJECTIVE: Active Medications Benzocaine/Menthol (Cepacol Lozenge -) 1 each MM PRN PRN PRN Reason: SORE THROAT Heparin Sodium (Porcine) (Heparin -) 5,000 unit SQ TID [facility] Last Admin: 10/07/17 06:29 Dose: 5,000 unit Meropenem 1 gm/ Dextrose 100 mls @ 200 mls/hr IVPB Q8H-IV [facility] Last Admin: 10/07/17 09:40 Dose: 200 mls/hr Potassium Chloride/Dextrose/Sod Cl (D5-1/2ns+20 Meq Kcl -) 20 meq in 1,000 mls @ 125 mls/hr IV ASDIR [facility] Last Admin: 10/07/17 06:29 Dose: 125 mls/hr Ondansetron HCl (Zofran Injection) 4 mg IVPUSH Q6H PRN PRN Reason: NAUSEA Pantoprazole Sodium (Protonix Iv) 40 mg IVPUSH DAILY [facility] Last Admin: 10/07/17 09:40 Dose: 40 mg Promethazine HCl (Phenergan Injection -) 12.5 mg IVPUSH Q6H PRN PRN Reason: NAUSEA-FOR RESCUE AFTER 15 MIN Gen: NAD at rest Heart: RRR no m/r/g Lung: decreased breath sounds at the bases Abd: dressings dry, + BS Ext: no edema Neuro: lightly confused, Non focal CBCD WBC 11.1 K/mm3 (4.0-10.0) H 10/07/17 05:30 RBC 3.47 M/mm3 (3.60-5.2) L 10/07/17 05:30 Hgb 10.1 GM/dL (10.7-15.3) L 10/07/17 05:30 Hct 29.8 % (32.4-45.2) L 10/07/17 05:30 MCV 86.0 fl (80-96) 10/07/17 05:30 MCHC 33.9 g/dl (32.0-36.0) 10/07/17 05:30 RDW 15.5 % (11.6-15.6) 10/07/17 05:30 Plt Count 177 K/MM3 (134-434) D 10/07/17 05:30 MPV 9.8 fl (7.5-11.1) 10/07/17 05:30 CMP Sodium 140 mmol/L (136-145) 10/07/17 05:30 Potassium 3.8 mmol/L (3.5-5.1) 10/07/17 05:30 Chloride 106 mmol/L (98-107) 10/07/17 05:30 Carbon Dioxide 29 mmol/L (21-32) 10/07/17 05:30 Anion Gap 5 (8-16) L 10/07/17 05:30 BUN 10 mg/dL (7-18) 10/07/17 05:30 Creatinine 0.4 mg/dL (0.55-1.02) L 10/07/17 05:30 Creat Clearance w eGFR > 60 (>60) 10/07/17 05:30 Calcium 8.3 mg/dL (8.5-10.1) L 10/07/17 05:30 Total Bilirubin 0.6 mg/dL (0.2-1.0) 10/06/17 06:10 AST 96 U/L (15-37) H 10/06/17 06:10 ALT 71 U/L (12-78) 10/06/17 06:10 Alkaline Phosphatase 45 U/L (45-117) D 10/06/17 06:10 Total Protein 4.6 g/dl (6.4-8.2) L 10/06/17 06:10 Albumin 1.7 g/dl (3.4-5.0) L 10/06/17 06:10 Active Medications Benzocaine/Menthol (Cepacol Lozenge -) 1 each MM PRN PRN PRN Reason: SORE THROAT Heparin Sodium (Porcine) (Heparin -) 5,000 unit SQ TID [facility] Last Admin: 10/07/17 06:29 Dose: 5,000 unit Meropenem 1 gm/ Dextrose 100 mls @ 200 mls/hr IVPB Q8H-IV [facility] Last Admin: 10/07/17 09:40 Dose: 200 mls/hr Potassium Chloride/Dextrose/Sod Cl (D5-1/2ns+20 Meq Kcl -) 20 meq in 1,000 mls @ 125 mls/hr IV ASDIR [facility] Last Admin: 10/07/17 06:29 Dose: 125 mls/hr Ondansetron HCl (Zofran Injection) 4 mg IVPUSH Q6H PRN PRN Reason: NAUSEA Pantoprazole Sodium (Protonix Iv) 40 mg IVPUSH DAILY [facility] Last Admin: 10/07/17 09:40 Dose: 40 mg Promethazine HCl (Phenergan Injection -) 12.5 mg IVPUSH Q6H PRN PRN Reason: NAUSEA-FOR RESCUE AFTER 15 MIN ASSESSMENT AND PLAN: Small Bowel Obstruction s/p ex-lap/resection of 4ft SB Sepsis Acute Kidney Injury Lactic Acidosis Hyperlipidemia - continue antibiotics as per ID - IVF - NGT to remain - pain control - incentive spirometry - O2 to keep SpO2 >90% - NPO---advance as per surgery, has BS, still no no BM - DVT prophylaxis - OOB today - can monitor on floor today Dagmar BUSTAMANTEP 8008 35min CCT
--- NOTE | 2017-10-07 12:04 | PN ---
Progress Note, Physician History of Present Illness: patient stable no complaints post op doing well transfused - Current Medication List Current Medications: Active Medications Benzocaine/Menthol (Cepacol Lozenge -) 1 each MM PRN PRN PRN Reason: SORE THROAT Heparin Sodium (Porcine) (Heparin -) 5,000 unit SQ TID [facility] Last Admin: 10/07/17 06:29 Dose: 5,000 unit Meropenem 1 gm/ Dextrose 100 mls @ 200 mls/hr IVPB Q8H-IV [facility] Last Admin: 10/07/17 09:40 Dose: 200 mls/hr Potassium Chloride/Dextrose/Sod Cl (D5-1/2ns+20 Meq Kcl -) 20 meq in 1,000 mls @ 125 mls/hr IV ASDIR [facility] Last Admin: 10/07/17 06:29 Dose: 125 mls/hr Ondansetron HCl (Zofran Injection) 4 mg IVPUSH Q6H PRN PRN Reason: NAUSEA Pantoprazole Sodium (Protonix Iv) 40 mg IVPUSH DAILY [facility] Last Admin: 10/07/17 09:40 Dose: 40 mg Promethazine HCl (Phenergan Injection -) 12.5 mg IVPUSH Q6H PRN PRN Reason: NAUSEA-FOR RESCUE AFTER 15 MIN - Objective Vital Signs: Vital Signs Temperature 99.1 F 10/07/17 09:39 Pulse Rate 85 10/07/17 09:39 Respiratory Rate 22 10/07/17 09:39 Blood Pressure 145/87 10/07/17 09:39 O2 Sat by Pulse Oximetry (%) 94 L 10/07/17 07:40 Constitutional: Yes: No Distress, Calm Cardiovascular: Yes: Regular Rate and Rhythm Respiratory: Yes: Regular, CTA Bilaterally Gastrointestinal: Yes: Soft, Hypoactive Bowel Sounds Musculoskeletal: Yes: WNL Extremities: Yes: WNL Neurological: Yes: Alert, Oriented Psychiatric: Yes: Alert, Oriented Labs: CBC, BMP 10/07/17 05:30 10/07/17 05:30 INR, PTT INR 1.08 (0.82-1.09) 10/02/17 17:42 - ....Imaging Cat Scan: Report Reviewed, Image Reviewed Assessment/Plan Problem List - Problems (1) SBO (small bowel obstruction) Code(s): K56.69 - OTHER INTESTINAL OBSTRUCTION * DO NOT USE * (2) Sepsis Code(s): A41.9 - SEPSIS, UNSPECIFIED ORGANISM (3) Hyperlipidemia Code(s): E78.5 - HYPERLIPIDEMIA, UNSPECIFIED (4) Hyperglycemia Code(s): R73.9 - HYPERGLYCEMIA, UNSPECIFIED (5) Lactic acidemia Code(s): E87.2 - ACIDOSIS (6) Ascites Code(s): R18.8 - OTHER ASCITES Qualifiers: Ascites type: other type Qualified Code(s): R18.8 - Other ascites Assessment/Plan continue abx monitor for fever also monitor closely hydration monitor h and h rest as per icu/surgery cc time 40 min
[2017-10-07] MEDS ORDERED: D5-1/2NS+20 MEQ KCL - 20 MEQ/1,000 ML INFUS.BAG IV SCH (13:38)
[2017-10-07] MEDS ORDERED: ONDANSETRON 4 MG/2 ML VIAL IVPUSH PRN (13:38)
[2017-10-07] MEDS ORDERED: PROMETHAZINE HCL 25 MG/1 ML VIAL IVPB PRN (13:38)
[2017-10-07] MEDS ORDERED: BENZOCAINE/MENTH/CETYLPYRD CL 1 EACH LOZENGE MM PRN (13:38)
--- NOTE | 2017-10-07 13:50 | PN ---
Progress Note (short form) - Note Progress Note: surgery pt seen and examined. feels well. bm and flatus. afebrile abd- soft, nt, nd, incision clean Laboratory Tests 10/07/17 05:30 WBC 11.1 H A/P 1) Pod#4- full liquids, remove ngt, stop ivf if tolerates 2) ischemic bowel- s/p resection, follow path. cont iv abx per id. lactate normal. wbc may be elevated from transfusion 3) arf- resolved 4) prophylaxis-lovenox, cont protonix, oob spirometer 5) post operative ileus- resolving 6) low hgb- stable
[2017-10-07] MEDS: LACTATED RINGERS SOLUTION 1,000 ML IV SCH (20:38)
[2017-10-08] MEDS ORDERED: PT OWN MED DRAWER 7, Y5N ONE ×3 (01:10→09:52)
[2017-10-08] MEDS: MEROPENEM 1 GM in DEXTROSE 5%-WATER 100 ML IVPB SCH ×2 (01:24→09:54)
[2017-10-08] MEDS: HEPARIN NA (PORCINE) 5,000 UNITS/ML 1ML VIAL SQ SCH ×2 (06:20→14:42)
[2017-10-08 07:52] LABS: BASO % 0.7 % (0-2.0); EOS % 1.5 % (0-4.5); HEMATOCRIT 31.2 % (32.4-45.2); HEMOGLOBIN 10.6 GM/dL (10.7-15.3); LYMPH % 18.8 % (8-40); MCH 29.4 pg (25.7-33.7); MCHC 34.1 g/dl (32.0-36.0); MEAN CELL VOLUME 86.1 fl (80-96); MEAN PLT VOLUME 9.1 fl (7.5-11.1); MONO % 7.6 % (3.8-10.2); NEUT % 71.4 % (42.8-82.8); PLATELET COUNT 229 K/MM3 (134-434); RBC 3.62 M/mm3 (3.60-5.2); RDW 15.5 % (11.6-15.6); WHITE BLOOD COUNT 9.6 K/mm3 (4.0-10.0)
[2017-10-08 08:15] LABS: CHLORIDE 105 mmol/L (98-107); SODIUM 140 mmol/L (136-145)
[2017-10-08 08:23] LABS: ALBUMIN 1.9 g/dl (3.4-5.0); ALK PHOS 92 U/L (45-117); ANION GAP 8 (8-16); BILIRUBIN,TOTAL 0.5 mg/dL (0.2-1.0); BLOOD UREA NITROGEN 7 mg/dL (7-18); CALCIUM 8.8 mg/dL (8.5-10.1); CO2 27 mmol/L (21-32); CREATININE 0.5 mg/dL (0.55-1.02); GLUCOSE,RANDOM 100 mg/dL (74-106); SGOT/AST 144 U/L (15-37); SGPT/ALT 147 U/L (12-78); TOT PROT 5.3 g/dl (6.4-8.2)
[2017-10-08] MEDS ORDERED: PANTOPRAZOLE SODIUM 40 MG VIAL IVPUSH SCH (10:00)
--- NOTE | 2017-10-08 14:49 | PN ---
Progress Note, Physician History of Present Illness: stable doing well - Current Medication List Current Medications: Active Medications Benzocaine/Menthol (Cepacol Lozenge -) 1 each MM PRN PRN PRN Reason: SORE THROAT Heparin Sodium (Porcine) (Heparin -) 5,000 unit SQ TID [facility] Last Admin: 10/08/17 14:42 Dose: 5,000 unit Potassium Chloride/Dextrose/Sod Cl (D5-1/2ns+20 Meq Kcl -) 20 meq in 1,000 mls @ 125 mls/hr IV ASDIR [facility] Last Admin: 10/07/17 14:38 Dose: 125 mls/hr Meropenem 1 gm/ Dextrose 100 mls @ 200 mls/hr IVPB Q8H-IV [facility] Last Admin: 10/08/17 09:54 Dose: 200 mls/hr Ondansetron HCl (Zofran Injection) 4 mg IVPUSH Q6H PRN PRN Reason: NAUSEA Pantoprazole Sodium (Protonix Iv) 40 mg IVPUSH DAILY [facility] Last Admin: 10/08/17 10:16 Dose: 40 mg Promethazine HCl (Phenergan Injection -) 12.5 mg IVPB Q6H PRN PRN Reason: NAUSEA-FOR RESCUE AFTER 15 MIN - Objective Vital Signs: Vital Signs Temperature 98.6 F 10/08/17 05:30 Pulse Rate 81 10/08/17 05:30 Respiratory Rate 18 10/07/17 18:00 Blood Pressure 139/69 10/08/17 05:30 O2 Sat by Pulse Oximetry (%) 95 10/07/17 20:10 Constitutional: Yes: No Distress, Calm Cardiovascular: Yes: Regular Rate and Rhythm Respiratory: Yes: Regular, CTA Bilaterally Gastrointestinal: Yes: Normal Bowel Sounds, Soft Musculoskeletal: Yes: WNL Extremities: Yes: WNL Wound/Incision: Yes: Clean/Dry, Enriqueta Intact, Dressing Dry and Intact Neurological: Yes: Alert, Oriented Psychiatric: Yes: Alert, Oriented Labs: CBC, BMP 10/08/17 07:19 10/08/17 07:19 INR, PTT INR 1.08 (0.82-1.09) 10/02/17 17:42 Assessment/Plan Problem List - Problems (1) SBO (small bowel obstruction) Code(s): K56.69 - OTHER INTESTINAL OBSTRUCTION * DO NOT USE * (2) Sepsis Code(s): A41.9 - SEPSIS, UNSPECIFIED ORGANISM (3) Hyperlipidemia Code(s): E78.5 - HYPERLIPIDEMIA, UNSPECIFIED (4) Hyperglycemia Code(s): R73.9 - HYPERGLYCEMIA, UNSPECIFIED (5) Lactic acidemia Code(s): E87.2 - ACIDOSIS (6) Ascites Code(s): R18.8 - OTHER ASCITES Qualifiers: Ascites type: other type Qualified Code(s): R18.8 - Other ascites Assessment/Plan can stop all abx monitor without ab ret continue current mgmt patient stable diet as tolerated
--- NOTE | 2017-10-08 14:56 | PN ---
Progress Note (short form) - Note Progress Note: surgery pt continues to have bms. tolerating liquids. afebrile Laboratory Tests 10/08/17 07:19 WBC 9.6 A/P 1) Pod#5- full liquids, surgically stable for discharge. would stay on liquids until Sunday then regular diet. 2) ischemic bowel- path confirms. consider stopping abx. 3) arf- resolved 4) prophylaxis-spirometer 5) post operative ileus- resolving 6) low hgb- stable 7) open wound- nearly healed, only needs dry dressing once discharged.
[2017-10-08 15:21] VITALS: BP 132/61; PULSE 85; TEMP 97.8
--- NOTE | 2017-10-08 15:40 | DS ---
Physical Examination Vital Signs: Vital Signs Temperature 36.6 C 10/08/17 15:12 Pulse Rate 85 10/08/17 15:12 Respiratory Rate 20 10/08/17 15:12 Blood Pressure 132/61 10/08/17 15:12 O2 Sat by Pulse Oximetry (%) 95 10/07/17 20:10 Constitutional: Yes: Well Nourished, No Distress, Calm Cardiovascular: Yes: Regular Rate and Rhythm. No: Gallop, Murmur, Rub Respiratory: Yes: Regular, CTA Bilaterally. No: Rales, Rhonchi, Wheezes Gastrointestinal: Yes: Normal Bowel Sounds, Soft. No: Distention, Tenderness Extremities: Yes: WNL Edema: No Labs: CBC, BMP 10/08/17 07:19 10/08/17 07:19 Discharge Summary Reason For Visit: ASCITES,HYERGLYCEMIA,SMALL BOWEL OBSTRUCTION Current Active Problems Ascites (Acute) Hyperglycemia (Acute) Lactic acidemia (Acute) Postoperative anemia due to acute blood loss (Acute) S/P small bowel resection (Acute) SBO (small bowel obstruction) (Acute) Sepsis (Acute) Hospital Course: (1) SBO (small bowel obstruction) Code(s): K56.69 - OTHER INTESTINAL OBSTRUCTION * DO NOT USE * (2) Sepsis Code(s): A41.9 - SEPSIS, UNSPECIFIED ORGANISM (3) Hyperlipidemia Code(s): E78.5 - HYPERLIPIDEMIA, UNSPECIFIED (4) Hyperglycemia Code(s): R73.9 - HYPERGLYCEMIA, UNSPECIFIED (5) Lactic acidemia Code(s): E87.2 - ACIDOSIS (6) Ascites Code(s): R18.8 - OTHER ASCITES Qualifiers: Ascites type: other type Qualified Code(s): R18.8 - Other ascites (7) ROCKYA Ms Springer is a very pleasant 81 year old female who came in with SBO causing ischemic colitis and sepsis. She was admitted and made npo. She was started on levaquin and flagyl and taken to the OR where she had an ex lap with small bowel resection. She was seen by ID and her antibiotics were changed to merrem. She had ABLA and received 2 units pRBCs. She originally was kept NPO and had an NGT in place. She improved and the NGT was removed. She was transitioned to liquids which she tolerated. She is currently having flatus and bowel movements. She has finished a full course of Abx and is currently safe for discharge home. 37 minutes spent in preparation of this discharge Condition: Good - Instructions Diet, Activity, Other Instructions: Liquid diet until Sunday, then can have regular diet. No heavy lifting until cleared by surgery. Referrals: Benigno Yip MD [Primary Care Provider] - 1 Week Fernando Crystal MD [Staff Physician] - Disposition: HOME - Home Medications Comprehensive Discharge Medication List: Ambulatory Orders Atorvastatin Ca [Lipitor] 20 mg PO HS 10/13/15
--- NOTE | 2017-10-15 15:07 | EKG ---
Test Reason : Blood Pressure : / mmHG Vent. Rate : 091 BPM Atrial Rate : 091 BPM P-R Int : 120 ms QRS Dur : 078 ms QT Int : 362 ms P-R-T Axes : 047 038 050 degrees QTc Int : 445 ms SINUS RHYTHM WITH PREMATURE ATRIAL COMPLEXES OTHERWISE NORMAL ECG WHEN COMPARED WITH ECG OF 02-OCT-2017 19:01, PREMATURE ATRIAL COMPLEXES ARE NOW PRESENT Confirmed by EMILE FERGUSON MD ([id number]) on 10/15/2017 3:07:02 PM Referred By: Confirmed By:EMILE FERGUSON MD
== END 2017-10-08 16:36 | disposition home or self-care (01) | DRG 853 ==
LOC: JER 17:02 → JERBED 21:13 → J6S 10-03 03:23 → JICU 10-03 17:35 → J6S 10-07 13:41
PROVIDERS: ADMIT Internal Medicine; ATTEND Internal Medicine
PROC: 0DNU0ZZ Release Omentum, Open Approach (ICD-10-PCS; 2017-10-03)
PROC: 0W9G0ZZ Drainage of Peritoneal Cavity, Open Approach (ICD-10-PCS; 2017-10-03)
PROC: 0DB80ZZ Excision of Small Intestine, Open Approach (ICD-10-PCS; principal; 2017-10-03 12:00)
PROC: 30233N1 Transfusion of Nonautologous Red Blood Cells into Peripheral Vein, Percutaneous Approach (ICD-10-PCS; 2017-10-05)
DX: A41.9 Sepsis, unspecified organism (principal); K55.022 Diffuse acute infarction of small intestine; K56.50 Intestinal adhesions [bands], unspecified as to partial versus complete obstruction; R18.8 Other ascites; E87.2 Acidosis; N17.9 Acute kidney failure, unspecified; D62 Acute posthemorrhagic anemia; K91.30 Postprocedural intestinal obstruction, unspecified as to partial versus complete; K55.8 Other vascular disorders of intestine; R73.9 Hyperglycemia, unspecified; F03.90 Unspecified dementia, unspecified severity, without behavioral disturbance, psychotic disturbance, mood disturbance, and anxiety; E78.5 Hyperlipidemia, unspecified; M85.80 Other specified disorders of bone density and structure, unspecified site; K46.9 Unspecified abdominal hernia without obstruction or gangrene; Y83.8 Other surgical procedures as the cause of abnormal reaction of the patient, or of later complication, without mention of misadventure at the time of the procedure; Z90.49 Acquired absence of other specified parts of digestive tract; Z87.891 Personal history of nicotine dependence
CPT/HCPCS: 36415; 36430; 36600; 71045-TC-FY; 71046-TC-FY; 74176-TC; 80048; 80053; 81003; 82150; 82272; 82803; 83605; 83690; 83735; 84100; 85025; 85027; 85610; 86850; 86900; 86901; 86922; 87040; 87086; 88307-TC; 93005; 93010; 94002; 94760; 97116-GP; 97162-GP; 99285-25; J0131; J1644; J7030; P9038; P9058